=== PATIENT | female | born 1950 | race Caucasian/White ===

== ENCOUNTER 2018-03-05 09:00 | Outpatient (RCR) | payer MEDICARE, OTHER, SELFPAY ==
--- NOTE | 2017-11-18 13:14 | PT.OIE ---
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 Primary Care Provider Specialty: Family Practice Address: [address] [place] [address], [facility] Email: [email or web address] Physical Therapy Initial Evaluation PT-OP-A Visit Information Start: 11/13/17 09:44 Freq: Status: Active Protocol: Document 11/13/17 16:14 EA (Rec: 11/13/17 16:43 EA [id number]) Out-Patient Physical Therapy Visit Information Visit Information Visit Type Initial Evaluation Visit Start Time 09:00 Visit Stop Time 09:35 Total Visit Minutes 35 Visit Number 1 PT-OP-B Current Condition Start: 11/13/17 09:44 Freq: Status: Active Protocol: Document 11/13/17 16:14 EA (Rec: 11/13/17 16:43 EA [id number]) Current Condition History of Current Condition Onset Date 8 months ago Current Complaints Difficulty of shoulder elevation due to pain and LOM History of Current Condition Present condition started ~ 6- 8 months ago with no known injury or significant medical history; states it all started after moving from other [facility] to [place] and has to lift heavy boxes. Reports recent X-ray reveals shoulder OA. No formal PT in the past and shoulder pain has been lessening after taking pain medication, however LOM is limted. Prior Treatments and Tests OTC medication (Aleve) X-rays 4 months ago reveals OA of left shoulder Future Testing and Treatments Planned None Treatment Goals Patient/Caregiver Goals Patient wants to increase shoulder elevation with no pain and improve strength. Prior Functional Status Baseline Function- ADL's Independent Baseline Function- Mobility Independent Baseline Function- Work/School No shoulder limitation Current Functional Impairments (Reported) Functional Limitations- ADL's Limited with overhead movement and self care (reaching backward) Personal Factors Other Personal Factors That May Effect None Therapy/Recovery PT-OP-C Subjective Start: 11/13/17 09:44 Freq: Status: Active Protocol: Document 11/13/17 16:14 EA (Rec: 11/13/17 16:43 EA [id number]) OP-PT Subjective Patient Comments Patient Comments Patient c/o of diffikculty strapping the bra, reaching behind, and overhead movement using left shoulder. Patient Reported Progress Worse Patient Questionnaires Quick Dash- Upper Extremity Quick Dash UE Impairment 20 to 39% Impaired (Score 20- 39) PT-OP-E Functional Tests Start: 11/13/17 09:44 Freq: Status: Active Protocol: Document 11/13/17 16:14 EA (Rec: 11/13/17 16:43 EA [id number]) Functional Tests Apley's Scratch Test Action 1: The subject is instructed to touch the opposite shoulder with his/her hand. This motion checks Glenohumeral adduction, internal rotation , horizontal adduction and scapular protraction Action 2: The subject is instructed to place his/her arm overhead and reach behind the neck to touch his/her upper back. This motion checks Glenohumeral abduction, external rotation and scapular upward rotation and elevation. Action 3: The subject puts his/her hand on the lower back and reaches upward as far as possible. This motion checks glenohumeral adduction, internal rotation and scapular retraction with downward rotation Action 2- Left C7 Action 2- Right T4 Action 3- Left Upper gluteal Action 3- Right T6 PT-OP-F Manual Assessment Start: 11/13/17 09:44 Freq: Status: Active Protocol: Document 11/13/17 17:00 EA (Rec: 11/18/17 12:16 EA [id number]) Manual Assessments Soft Tissue Assessment Soft Tissue Mobility Assessment Tight shoulder ER, ABD, IR ( capsular pattern) Hypomobility Joint Mobility Assessment Joint Mobility Assessment Hypomobility of GH joint PT-OP-J Posture/Palpation/Skin Start: 11/13/17 09:44 Freq: Status: Active Protocol: Document 11/13/17 16:14 EA (Rec: 11/13/17 16:43 EA [id number]) Posture Evaluation Position Standing Evaluation View Posterior Head/C-Spine Posture Neutral Position T-Spine Posture Neutral Thorax Posture Neutral L-Spine Posture Neutral Shoulder Posture Neutral Scapula Posture (L) Protracted Palpation Assessment Location One Palpation Location Left shoulder Palpation Findings Soft Tissue Tightness Muscle Guarding Tenderness PT-OP-K Range of Motion Start: 11/13/17 09:44 Freq: Status: Active Protocol: Document 11/13/17 16:14 EA (Rec: 11/13/17 16:43 EA [id number]) Shoulder Goniometric Range of Motion Shoulder Measured in Degrees Left Active Testing Position Sitting Flexion 90 Extension 50 Abduction 75 Horizontal Abduction 20 External Rotation at 90 degrees 40 Abduction Internal Rotation 33 Shoulder ROM Limitations Shoulder ROM Limitations Soft Tissue Tightness Pain Comments Glenuhumeral capsular restriction ( ERot, ABD, IRot) PT-OP-L Special Tests Start: 11/13/17 09:44 Freq: Status: Active Protocol: Document 11/13/17 16:14 EA (Rec: 11/13/17 16:43 EA [id number]) Special Tests Shoulder Special Tests Posterior Impingement Test Results - Speed's Biceps Test Results - Empty Can Test Results - Beltrán Ramon Impingement Test Results - Elevation Impingement Test Results - Belly Press Test Results - PT-OP-M Strength Start: 11/13/17 09:44 Freq: Status: Active Protocol: Document 11/13/17 16:14 EA (Rec: 11/13/17 16:43 EA [id number]) Shoulder Strength Shoulder Manual Muscle Testing Left Flexion 4- Good- Extension 4- Good- Abduction (C5) 4- Good- Adduction 4+ Good+ External Rotation 4- Good- Internal Rotation 4- Good- Horizontal Abduction 4- Good- Horizontal Adduction 4 Good PT-OP-Q Treatments Start: 11/13/17 09:44 Freq: Status: Active Protocol: Document 11/13/17 16:14 EA (Rec: 11/13/17 16:43 EA [id number]) Self-Care/Home Management Treatment Education Patient Education Home Exercise Program Joint Protection Pain Management Safety PT-OP-T Assessment and Plan Start: 11/13/17 09:44 Freq: Status: Active Protocol: Document 11/13/17 16:14 EA (Rec: 11/13/17 16:43 EA [id number]) Physical Therapy Assessment Rehab Potential Rehabilitation Potential Good Evaluation Complexity Number of Personal Factors/Comorbidities 0 Number of Body Systems Impaired 1-2 Clinical Presentation at Evaluation Evolving Impairments Impairments Functional Activities Pain ROM Strength Other Concerns Barriers to Rehabilitation Chronicity of the condition. Goals Three Impairment QuickDash impairment scale of 20-30% impaired Chcf Goal (LTG) Patient will have QuickDash impairment scale of 0-10% impaired LTG Duration 4 wks Two Impairment Impaired left shoulder strength Chcf Goal (LTG) Patient will increase left shoulder strength by 1/2 grade to improve shoulder function or overhead and reaching behind movement LTG Duration 4 wks One Impairment Impaired L shoulder ROM Senior Business Analyst Goal (LTG) Patient will increase shoulder ROM to functional range (ER, ABD, IR) to improve shoulder functional mobility. LTG Duration 4 wks Assessment Summary Assessment Pleasant 67 y/o F patient presented with left shoulder LOM, minimal pain and weakness . Special tests reveals joint hypomobility in capsular pattern which probable for adhesive capsulitis, test to rotator cuff and long head of biceps reveals negative. Due to impaired shoulder function, patient demonstrates difficulty of shoulder overhead and reaching behind activities. In my professional opinion patient would benefit with skilled PT to address the aforementioned issue. Physical Therapy Plan Frequency and Duration Frequency of Treatment 2x/Week Duration of Treatment 8 wks Plan of Care Start Date 11/13/17 Plan of Care End Date 01/08/18 Therapeutic Interventions Therapeutic Interventions Home Exercise Program Joint Mobilizations Manual Therapy Patient/Caregiver Education Self-Care/Home Management Soft Tissue Mobilization Therapeutic Exercises Modalities Cold Pack/Ice Massage Electric Stimulation Hot Packs Ultrasound Next Visit Focus/Plan Next Note Type Treatment Note Next Visit Plan HEP, deep heating, mobilization, gentle PROM
--- NOTE | 2017-11-18 13:15 | PT.OPPOC ---
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 Primary Care Provider Specialty: Family Practice Address: [address] [place] [address], [id number] Email: [email or web address] Plan Of Care PT-OP-T Assessment and Plan Start: 11/13/17 09:44 Freq: Status: Active Protocol: Document 11/13/17 16:14 EA (Rec: 11/13/17 16:43 EA [id number]) Physical Therapy Assessment Rehab Potential Rehabilitation Potential Good Evaluation Complexity Number of Personal Factors/Comorbidities 0 Number of Body Systems Impaired 1-2 Clinical Presentation at Evaluation Evolving Impairments Impairments Functional Activities Pain ROM Strength Other Concerns Barriers to Rehabilitation Chronicity of the condition. Goals Three Impairment QuickDash impairment scale of 20-30% impaired Warehouse Consultant Goal (LTG) Patient will have QuickDash impairment scale of 0-10% impaired LTG Duration 4 wks Two Impairment Impaired left shoulder strength Warehouse Consultant Goal (LTG) Patient will increase left shoulder strength by 1/2 grade to improve shoulder function or overhead and reaching behind movement LTG Duration 4 wks One Impairment Impaired L shoulder ROM Halfway Goal (LTG) Patient will increase shoulder ROM to functional range (ER, ABD, IR) to improve shoulder functional mobility. LTG Duration 4 wks Assessment Summary Assessment Pleasant 67 y/o F patient presented with left shoulder LOM, minimal pain and weakness . Special tests reveals joint hypomobility in capsular pattern which probable for adhesive capsulitis, test to rotator cuff and long head of biceps reveals negative. Due to impaired shoulder function, patient demonstrates difficulty of shoulder overhead and reaching behind activities. In my professional opinion patient would benefit with skilled PT to address the aforementioned issues. Physical Therapy Plan Frequency and Duration Frequency of Treatment 2x/Week Duration of Treatment 8 wks Plan of Care Start Date 11/13/17 Plan of Care End Date 01/08/18 Therapeutic Interventions Therapeutic Interventions Home Exercise Program Joint Mobilizations Manual Therapy Patient/Caregiver Education Self-Care/Home Management Soft Tissue Mobilization Therapeutic Exercises Modalities Cold Pack/Ice Massage Electric Stimulation Hot Packs Ultrasound Next Visit Focus/Plan Next Note Type Treatment Note Next Visit Plan HEP, deep heating, mobilization, gentle PROM Plan of Care Dates Plan of Care Start Date 11/13/17 Plan of Care End Date 01/08/18 Please Sign and Return: I have reviewed this Plan of Care and certify that the skilled therapy services above are required to meet the patient?s needs. Physician Signature Date Printed Name and Credentials Clinical Instructor Signature Printed Name and Credentials
--- NOTE | 2017-11-18 17:07 | PT.OTN ---
Current Diagnoses Pain in left shoulder (11/18/17) Physical Therapy Treatment Note PT-OP-A Visit Information Start: 11/13/17 09:44 Freq: Status: Active Protocol: Document 11/18/17 16:47 EA (Rec: 11/18/17 16:51 EA [id number]) Out-Patient Physical Therapy Visit Information Visit Information Visit Type Treatment Note Visit Start Time 16:00 Visit Stop Time 16:50 Total Visit Minutes 50 Visit Number 2 PT-OP-B Current Condition Start: 11/13/17 09:44 Freq: Status: Active Protocol: Document 11/13/17 16:14 EA (Rec: 11/13/17 16:43 EA [id number]) Current Condition History of Current Condition Onset Date 8 months ago Current Complaints Diffikculty of shoulder elevation due to pain and LOM History of Current Condition Present condition strated ~ 6- 8 months ago with no known injury or significant medical history; states it all started [place] to [place] and has to lift heavy boxes. Reports recent X-ray reveals shoulder OA. No formal PT in the past and shoulder pain has been lessening after taking pain medication, however LOM is limted. Prior Treatments and Tests OTC medication (Aleeve) X-rays 4 months ago reveals OA of left shoulder Future Testing and Treatments Planned None Treatment Goals Patient/Caregiver Goals Patient wants to increase shoulder elevation with no pain and improve strength. Prior Functional Status Baseline Function- ADL's Independent Baseline Function- Mobility Independent Baseline Function- Work/School No shoulder limitation Current Functional Impairments (Reported) Functional Limitations- ADL's Limited with overhead movement and self care (reaching backward) Personal Factors Other Personal Factors That May Effect None Therapy/Recovery PT-OP-C Subjective Start: 11/13/17 09:44 Freq: Status: Active Protocol: Document 11/18/17 16:47 EA (Rec: 11/18/17 16:51 EA [id number]) OP-PT Subjective Patient Comments Patient Comments Pt reports compliant with HEP and range is improving. PT-OP-E Functional Tests Start: 11/13/17 09:44 Freq: Status: Active Protocol: Document 11/13/17 16:14 EA (Rec: 11/13/17 16:43 EA [id number]) Functional Tests Brandtey's Scratch Test Action 1: The subject is instructed to touch the opposite shoulder with his/her hand. This motion checks Glenohumeral adduction, internal rotation , horizontal adduction and scapular protraction Action 2: The subject is instructed to place his/her arm overhead and reach behind the neck to touch his/her upper back. This motion checks Glenohumeral abduction, external rotation and scapular upward rotation and elevation. Action 3: The subject puts his/her hand on the lower back and reaches upward as far as possible. This motion checks glenohumeral adduction, internal rotation and scapular retraction with downward rotation Action 2- Left C7 Action 2- Right T4 Action 3- Left Upper gluteal Action 3- Right T6 PT-OP-F Manual Assessment Start: 11/13/17 09:44 Freq: Status: Active Protocol: Document 11/13/17 17:00 EA (Rec: 11/18/17 12:16 EA [id number]) Manual Assessments Soft Tissue Assessment Soft Tissue Mobility Assessment Tight shoulder ER, ABD, IR ( capsular pattern) Hypomobility Joint Mobility Assessment Joint Mobility Assessment Hypomobility of GH joint PT-OP-J Posture/Palpation/Skin Start: 11/13/17 09:44 Freq: Status: Active Protocol: Document 11/13/17 16:14 EA (Rec: 11/13/17 16:43 EA [id number]) Posture Evaluation Position Standing Evaluation View Posterior Head/C-Spine Posture Neutral Position T-Spine Posture Neutral Thorax Posture Neutral L-Spine Posture Neutral Shoulder Posture Neutral Scapula Posture (L) Protracted Palpation Assessment Location One Palpation Location Left shoulder Palpation Findings Soft Tissue Tightness Muscle Guarding Tenderness PT-OP-K Range of Motion Start: 11/13/17 09:44 Freq: Status: Active Protocol: Document 11/13/17 16:14 EA (Rec: 11/13/17 16:43 EA [id number]) Shoulder Goniometric Range of Motion Shoulder Measured in Degrees Left Active Testing Position Sitting Flexion 90 Extension 50 Abduction 75 Horizontal Abduction 20 External Rotation at 90 degrees 40 Abduction Internal Rotation 33 Shoulder ROM Limitations Shoulder ROM Limitations Soft Tissue Tightness Pain Comments Glenuhumeral capsular restriction ( ERot, ABD, IRot) PT-OP-L Special Tests Start: 11/13/17 09:44 Freq: Status: Active Protocol: Document 11/13/17 16:14 EA (Rec: 11/13/17 16:43 EA [id number]) Special Tests Shoulder Special Tests Posterior Impingement Test Results - Speed's Biceps Test Results - Empty Can Test Results - Beltrán Ramon Impingement Test Results - Elevation Impingement Test Results - Belly Press Test Results - PT-OP-M Strength Start: 11/13/17 09:44 Freq: Status: Active Protocol: Document 11/13/17 16:14 EA (Rec: 11/13/17 16:43 EA [id number]) Shoulder Strength Shoulder Manual Muscle Testing Left Flexion 4- Good- Extension 4- Good- Abduction (C5) 4- Good- Adduction 4+ Good+ External Rotation 4- Good- Internal Rotation 4- Good- Horizontal Abduction 4- Good- Horizontal Adduction 4 Good PT-OP-Q Treatments Start: 11/13/17 09:44 Freq: Status: Active Protocol: Document 11/18/17 16:47 EA (Rec: 11/18/17 16:51 EA [id number]) Cardio Equipment Upper Body Ergometer (UBE) Duration (Minutes) 6 Height 3.5 Therapeutic Exercises Sitting Exercises 1 Sitting Exercise Name Sebastián: flexion/ABD Reps/Minutes x 10 reps x 2 sets Manual Therapy Treatment Soft Tissue Mobilization 1 Body Location left shoulder Mobilization Type Sustained Pressure Joint Mobilizations 1 Joint GH Direction Post/INF Grade III Body Position Supine PT-OP-R Modalities Start: 11/18/17 16:51 Freq: Status: Active Protocol: Document 11/18/17 16:51 EA (Rec: 11/18/17 16:52 EA [id number]) Electric Stimulation Electric Stimulation Interferential Current (IFC) Body Location SS,Deltoid, IS Duration (Minutes) 15 Combined With Heat/Cold Hot Pack Ultrasound Therapy Treatment Left Shoulder Treatment Duration (minutes) 5 Patient Position Supine Coupling Medium Ultrasound Gel Mode Setting Continuous Intensity Setting (w/cm2) 1.0 PT-OP-T Assessment and Plan Start: 11/13/17 09:44 Freq: Status: Active Protocol: Document 11/18/17 16:47 EA (Rec: 11/18/17 16:51 EA [id number]) Physical Therapy Assessment Assessment Summary Assessment Tolerated treatment well. Physical Therapy Plan Next Visit Focus/Plan Next Note Type Treatment Note Next Visit Plan Cont with current program. Provide HEP
--- NOTE | 2017-11-20 16:35 | PT.OTN ---
Current Diagnoses Pain in left shoulder (11/20/17) Physical Therapy Treatment Note PT-OP-A Visit Information Start: 11/13/17 09:44 Freq: Status: Active Protocol: Document 11/20/17 14:26 EA (Rec: 11/20/17 15:18 EA [id number]) Out-Patient Physical Therapy Visit Information Visit Information Visit Type Treatment Note Visit Start Time 14:30 Visit Stop Time 15:30 Total Visit Minutes 50 Visit Number 3 PT-OP-B Current Condition Start: 11/13/17 09:44 Freq: Status: Active Protocol: Document 11/13/17 16:14 EA (Rec: 11/13/17 16:43 EA [id number]) Current Condition History of Current Condition Onset Date 8 months ago Current Complaints Diffikculty of shoulder elevation due to pain and LOM History of Current Condition Present condition strated ~ 6- 8 months ago with no known injury or significant medical history; states it all started after moving from other States to [place] and has to lift heavy boxes. Reports recent X-ray reveals shoulder OA. No formal PT in the past and shoulder pain has been lessening after taking pain medication, however LOM is limted. Prior Treatments and Tests OTC medication (Aleeve) X-rays 4 months ago reveals OA of left shoulder Future Testing and Treatments Planned None Treatment Goals Patient/Caregiver Goals Patient wants to increase shoulder elevation with no pain and improve strength. Prior Functional Status Baseline Function- ADL's Independent Baseline Function- Mobility Independent Baseline Function- Work/School No shoulder limitation Current Functional Impairments (Reported) Functional Limitations- ADL's Limited with overhead movement and self care (reaching backward) Personal Factors Other Personal Factors That May Effect None Therapy/Recovery PT-OP-C Subjective Start: 11/13/17 09:44 Freq: Status: Active Protocol: Document 11/20/17 14:26 EA (Rec: 11/20/17 15:18 EA [id number]) OP-PT Subjective Patient Comments Patient Comments Loren reports no incrased in pain after last session and noted improved shoulder ROM after doing wall ROM. Patient also reports that she will be gone for three weeks and wants to know more home exercises. PT-OP-E Functional Tests Start: 11/13/17 09:44 Freq: Status: Active Protocol: Document 11/13/17 16:14 EA (Rec: 11/13/17 16:43 EA [id number]) Functional Tests Apley's Scratch Test Action 1: The subject is instructed to touch the opposite shoulder with his/her hand. This motion checks Glenohumeral adduction, internal rotation , horizontal adduction and scapular protraction Action 2: The subject is instructed to place his/her arm overhead and reach behind the neck to touch his/her upper back. This motion checks Glenohumeral abduction, external rotation and scapular upward rotation and elevation. Action 3: The subject puts his/her hand on the lower back and reaches upward as far as possible. This motion checks glenohumeral adduction, internal rotation and scapular retraction with downward rotation Action 2- Left C7 Action 2- Right T4 Action 3- Left Upper gluteal Action 3- Right T6 PT-OP-F Manual Assessment Start: 11/13/17 09:44 Freq: Status: Active Protocol: Document 11/13/17 17:00 EA (Rec: 11/18/17 12:16 EA [id number]) Manual Assessments Soft Tissue Assessment Soft Tissue Mobility Assessment Tight shoulder ER, ABD, IR ( capsular pattern) Hypomobility Joint Mobility Assessment Joint Mobility Assessment Hypomobility of GH joint PT-OP-J Posture/Palpation/Skin Start: 11/13/17 09:44 Freq: Status: Active Protocol: Document 11/13/17 16:14 EA (Rec: 11/13/17 16:43 EA [id number]) Posture Evaluation Position Standing Evaluation View Posterior Head/C-Spine Posture Neutral Position T-Spine Posture Neutral Thorax Posture Neutral L-Spine Posture Neutral Shoulder Posture Neutral Scapula Posture (L) Protracted Palpation Assessment Location One Palpation Location Left shoulder Palpation Findings Soft Tissue Tightness Muscle Guarding Tenderness PT-OP-K Range of Motion Start: 11/13/17 09:44 Freq: Status: Active Protocol: Document 11/13/17 16:14 EA (Rec: 11/13/17 16:43 EA [id number]) Shoulder Goniometric Range of Motion Shoulder Measured in Degrees Left Active Testing Position Sitting Flexion 90 Extension 50 Abduction 75 Horizontal Abduction 20 External Rotation at 90 degrees 40 Abduction Internal Rotation 33 Shoulder ROM Limitations Shoulder ROM Limitations Soft Tissue Tightness Pain Comments Glenuhumeral capsular restriction ( ERot, ABD, IRot) PT-OP-L Special Tests Start: 11/13/17 09:44 Freq: Status: Active Protocol: Document 11/13/17 16:14 EA (Rec: 11/13/17 16:43 EA [id number]) Special Tests Shoulder Special Tests Posterior Impingement Test Results - Speed's Biceps Test Results - Empty Can Test Results - Beltrán Ramon Impingement Test Results - Elevation Impingement Test Results - Belly Press Test Results - PT-OP-M Strength Start: 11/13/17 09:44 Freq: Status: Active Protocol: Document 11/13/17 16:14 EA (Rec: 11/13/17 16:43 EA [id number]) Shoulder Strength Shoulder Manual Muscle Testing Left Flexion 4- Good- Extension 4- Good- Abduction (C5) 4- Good- Adduction 4+ Good+ External Rotation 4- Good- Internal Rotation 4- Good- Horizontal Abduction 4- Good- Horizontal Adduction 4 Good PT-OP-Q Treatments Start: 11/13/17 09:44 Freq: Status: Active Protocol: Document 11/20/17 14:26 EA (Rec: 11/20/17 15:18 EA [id number]) Cardio Equipment Upper Body Ergometer (UBE) Duration (Minutes) 6 Height 3.5 Therapeutic Exercises Sitting Exercises 1 Sitting Exercise Name Sebastián: flexion/ABD Reps/Minutes x 10 reps x 2 sets Manual Therapy Treatment Soft Tissue Mobilization 1 Body Location left shoulder Mobilization Type Sustained Pressure Joint Mobilizations 1 Joint GH Direction Post/INF Grade III Body Position Supine Self-Care/Home Management Treatment Education Patient Education Home Exercise Program Joint Protection Pain Management PT-OP-R Modalities Start: 11/18/17 16:51 Freq: Status: Active Protocol: Document 11/20/17 14:26 EA (Rec: 11/20/17 15:18 EA [id number]) Electric Stimulation Electric Stimulation Interferential Current (IFC) Body Location SS,Deltoid, IS Duration (Minutes) 15 Combined With Heat/Cold Hot Pack Ultrasound Therapy Treatment Left Shoulder Treatment Duration (minutes) 5 Patient Position Supine Coupling Medium Ultrasound Gel Mode Setting Continuous Intensity Setting (w/cm2) 1.0 PT-OP-T Assessment and Plan Start: 11/13/17 09:44 Freq: Status: Active Protocol: Document 11/20/17 14:26 EA (Rec: 11/20/17 15:18 EA [id number]) Physical Therapy Assessment Assessment Summary Assessment Patient had significant improvement to right shoulder ROM and symptoms. Patient to see after three weeks and HEP was given and educated. Physical Therapy Plan Next Visit Focus/Plan Next Visit Plan Progress as tolerated upon return
--- NOTE | 2017-12-16 10:45 | PT.OTN ---
Current Diagnoses Pain in left shoulder (12/16/17) Physical Therapy Treatment Note PT-OP-A Visit Information Start: 11/13/17 09:44 Freq: Status: Active Protocol: Document 12/16/17 10:34 EA (Rec: 12/16/17 10:43 EA [id number]) Out-Patient Physical Therapy Visit Information Visit Information Visit Type Treatment Note Visit Start Time 14:30 Visit Stop Time 15:30 Total Visit Minutes 50 Visit Number 4 PT-OP-B Current Condition Start: 11/13/17 09:44 Freq: Status: Active Protocol: Document 11/13/17 16:14 EA (Rec: 11/13/17 16:43 EA [id number]) Current Condition History of Current Condition Onset Date 8 months ago Current Complaints Diffikculty of shoulder elevation due to pain and LOM History of Current Condition Present condition strated ~ 6- 8 months ago with no known injury or significant medical history; states it all started after moving from other States to [place] and has to lift heavy boxes. Reports recent X-ray reveals shoulder OA. No formal PT in the past and shoulder pain has been lessening after taking pain medication, however LOM is limted. Prior Treatments and Tests OTC medication (Aleeve) X-rays 4 months ago reveals OA of left shoulder Future Testing and Treatments Planned None Treatment Goals Patient/Caregiver Goals Patient wants to increase shoulder elevation with no pain and improve strength. Prior Functional Status Baseline Function- ADL's Independent Baseline Function- Mobility Independent Baseline Function- Work/School No shoulder limitation Current Functional Impairments (Reported) Functional Limitations- ADL's Limited with overhead movement and self care (reaching backward) Personal Factors Other Personal Factors That May Effect None Therapy/Recovery PT-OP-C Subjective Start: 11/13/17 09:44 Freq: Status: Active Protocol: Document 12/16/17 10:34 EA (Rec: 12/16/17 10:43 EA [id number]) OP-PT Subjective Patient Comments Patient Comments Patient reports unable to perform HEP on recommended schedule time. patient states pain is much less but still limited with range. Patient also reports right thumb is painful in the past few weeks and is planning to see her doctor for assessment. Patient Reported Progress Improving PT-OP-E Functional Tests Start: 11/13/17 09:44 Freq: Status: Active Protocol: Document 11/13/17 16:14 EA (Rec: 11/13/17 16:43 EA [id number]) Functional Tests Apley's Scratch Test Action 1: The subject is instructed to touch the opposite shoulder with his/her hand. This motion checks Glenohumeral adduction, internal rotation , horizontal adduction and scapular protraction Action 2: The subject is instructed to place his/her arm overhead and reach behind the neck to touch his/her upper back. This motion checks Glenohumeral abduction, external rotation and scapular upward rotation and elevation. Action 3: The subject puts his/her hand on the lower back and reaches upward as far as possible. This motion checks glenohumeral adduction, internal rotation and scapular retraction with downward rotation Action 2- Left C7 Action 2- Right T4 Action 3- Left Upper gluteal Action 3- Right T6 PT-OP-F Manual Assessment Start: 11/13/17 09:44 Freq: Status: Active Protocol: Document 11/13/17 17:00 EA (Rec: 11/18/17 12:16 EA [id number]) Manual Assessments Soft Tissue Assessment Soft Tissue Mobility Assessment Tight shoulder ER, ABD, IR ( capsular pattern) Hypomobility Joint Mobility Assessment Joint Mobility Assessment Hypomobility of GH joint PT-OP-J Posture/Palpation/Skin Start: 11/13/17 09:44 Freq: Status: Active Protocol: Document 11/13/17 16:14 EA (Rec: 11/13/17 16:43 EA [id number]) Posture Evaluation Position Standing Evaluation View Posterior Head/C-Spine Posture Neutral Position T-Spine Posture Neutral Thorax Posture Neutral L-Spine Posture Neutral Shoulder Posture Neutral Scapula Posture (L) Protracted Palpation Assessment Location One Palpation Location Left shoulder Palpation Findings Soft Tissue Tightness Muscle Guarding Tenderness PT-OP-K Range of Motion Start: 11/13/17 09:44 Freq: Status: Active Protocol: Document 11/13/17 16:14 EA (Rec: 11/13/17 16:43 EA [id number]) Shoulder Goniometric Range of Motion Shoulder Measured in Degrees Left Active Testing Position Sitting Flexion 90 Extension 50 Abduction 75 Horizontal Abduction 20 External Rotation at 90 degrees 40 Abduction Internal Rotation 33 Shoulder ROM Limitations Shoulder ROM Limitations Soft Tissue Tightness Pain Comments Glenuhumeral capsular restriction ( ERot, ABD, IRot) PT-OP-L Special Tests Start: 11/13/17 09:44 Freq: Status: Active Protocol: Document 11/13/17 16:14 EA (Rec: 11/13/17 16:43 EA [id number]) Special Tests Shoulder Special Tests Posterior Impingement Test Results - Speed's Biceps Test Results - Empty Can Test Results - Beltrán Ramon Impingement Test Results - Elevation Impingement Test Results - Belly Press Test Results - PT-OP-M Strength Start: 11/13/17 09:44 Freq: Status: Active Protocol: Document 11/13/17 16:14 EA (Rec: 11/13/17 16:43 EA [id number]) Shoulder Strength Shoulder Manual Muscle Testing Left Flexion 4- Good- Extension 4- Good- Abduction (C5) 4- Good- Adduction 4+ Good+ External Rotation 4- Good- Internal Rotation 4- Good- Horizontal Abduction 4- Good- Horizontal Adduction 4 Good PT-OP-Q Treatments Start: 11/13/17 09:44 Freq: Status: Active Protocol: Document 12/16/17 10:34 EA (Rec: 12/16/17 10:43 EA [id number]) Cardio Equipment Upper Body Ergometer (UBE) Duration (Minutes) 6 Height 4 Therapeutic Exercises Sitting Exercises 1 Sitting Exercise Name Sebastián: flexion/ABD Reps/Minutes x 10 reps x 2 sets Standing Exercises 2 Standing Exercise Name wall slides: Flexion/ V form Equipment Used wall slider Reps/Minutes x 15 reps x 2 sets each 1 Standing Exercise Name T-Bar: Flexion, extnsion-IR Side bilateral Reps/Minutes x 15 reps x 2 sets Manual Therapy Treatment Soft Tissue Mobilization 1 Body Location left shoulder Mobilization Type Sustained Pressure Joint Mobilizations 1 Joint GH Direction Post/INF Grade III Body Position Supine Manual Techniques 1 Type Gentle PROM/Stretch Comments Perform contact-relax PNF PT-OP-R Modalities Start: 11/18/17 16:51 Freq: Status: Active Protocol: Document 12/16/17 10:34 EA (Rec: 12/16/17 10:43 EA [id number]) Hot Pack/Cold Pack Treatment Hot Pack Location L shoulder Patient Position Supine Patient Tolerance Good PT-OP-T Assessment and Plan Start: 11/13/17 09:44 Freq: Status: Active Protocol: Document 12/16/17 10:34 EA (Rec: 12/16/17 10:43 EA [id number]) Physical Therapy Assessment Progress Towards Goals Progress Comments AROM supine: Flexion: 0-140 ABD: 130 Assessment Summary Assessment Patient had improved ROM after manual PT. Advised patient to continue HEP. Physical Therapy Plan Next Visit Focus/Plan Next Note Type Treatment Note Next Visit Plan Progress as tolerated
--- NOTE | 2017-12-18 15:07 | PT.OTN ---
Current Diagnoses Pain in left shoulder (12/18/17) Physical Therapy Treatment Note PT-OP-A Visit Information Start: 11/13/17 09:44 Freq: Status: Active Protocol: Document 12/18/17 13:05 EA (Rec: 12/18/17 13:50 EA [id number]) Out-Patient Physical Therapy Visit Information Visit Information Visit Type Treatment Note Visit Start Time 13:00 Visit Stop Time 13:50 Visit Number 5 PT-OP-B Current Condition Start: 11/13/17 09:44 Freq: Status: Active Protocol: Document 11/13/17 16:14 EA (Rec: 11/13/17 16:43 EA [id number]) Current Condition History of Current Condition Onset Date 8 months ago Current Complaints Diffikculty of shoulder elevation due to pain and LOM History of Current Condition Present condition strated ~ 6- 8 months ago with no known injury or significant medical history; states it all started after moving from other States to [place] and has to lift heavy boxes. Reports recent X-ray reveals shoulder OA. No formal PT in the past and shoulder pain has been lessening after taking pain medication, however LOM is limted. Prior Treatments and Tests OTC medication (Aleeve) X-rays 4 months ago reveals OA of left shoulder Future Testing and Treatments Planned None Treatment Goals Patient/Caregiver Goals Patient wants to increase shoulder elevation with no pain and improve strength. Prior Functional Status Baseline Function- ADL's Independent Baseline Function- Mobility Independent Baseline Function- Work/School No shoulder limitation Current Functional Impairments (Reported) Functional Limitations- ADL's Limited with overhead movement and self care (reaching backward) Personal Factors Other Personal Factors That May Effect None Therapy/Recovery PT-OP-C Subjective Start: 11/13/17 09:44 Freq: Status: Active Protocol: Document 12/18/17 13:05 EA (Rec: 12/18/17 13:50 EA [id number]) OP-PT Subjective Patient Comments Patient Comments Patient reports left shoulder feels losen after last session ; states pain increased after more than 140 deg ABD/Flexion. Reports compliant with HEP Patient Reported Progress Improving PT-OP-E Functional Tests Start: 11/13/17 09:44 Freq: Status: Active Protocol: Document 11/13/17 16:14 EA (Rec: 11/13/17 16:43 EA [id number]) Functional Tests Apley's Scratch Test Action 1: The subject is instructed to touch the opposite shoulder with his/her hand. This motion checks Glenohumeral adduction, internal rotation , horizontal adduction and scapular protraction Action 2: The subject is instructed to place his/her arm overhead and reach behind the neck to touch his/her upper back. This motion checks Glenohumeral abduction, external rotation and scapular upward rotation and elevation. Action 3: The subject puts his/her hand on the lower back and reaches upward as far as possible. This motion checks glenohumeral adduction, internal rotation and scapular retraction with downward rotation Action 2- Left C7 Action 2- Right T4 Action 3- Left Upper gluteal Action 3- Right T6 PT-OP-F Manual Assessment Start: 11/13/17 09:44 Freq: Status: Active Protocol: Document 11/13/17 17:00 EA (Rec: 11/18/17 12:16 EA [id number]) Manual Assessments Soft Tissue Assessment Soft Tissue Mobility Assessment Tight shoulder ER, ABD, IR ( capsular pattern) Hypomobility Joint Mobility Assessment Joint Mobility Assessment Hypomobility of GH joint PT-OP-J Posture/Palpation/Skin Start: 11/13/17 09:44 Freq: Status: Active Protocol: Document 11/13/17 16:14 EA (Rec: 11/13/17 16:43 EA [id number]) Posture Evaluation Position Standing Evaluation View Posterior Head/C-Spine Posture Neutral Position T-Spine Posture Neutral Thorax Posture Neutral L-Spine Posture Neutral Shoulder Posture Neutral Scapula Posture (L) Protracted Palpation Assessment Location One Palpation Location Left shoulder Palpation Findings Soft Tissue Tightness Muscle Guarding Tenderness PT-OP-K Range of Motion Start: 11/13/17 09:44 Freq: Status: Active Protocol: Document 11/13/17 16:14 EA (Rec: 11/13/17 16:43 EA [id number]) Shoulder Goniometric Range of Motion Shoulder Measured in Degrees Left Active Testing Position Sitting Flexion 90 Extension 50 Abduction 75 Horizontal Abduction 20 External Rotation at 90 degrees 40 Abduction Internal Rotation 33 Shoulder ROM Limitations Shoulder ROM Limitations Soft Tissue Tightness Pain Comments Glenuhumeral capsular restriction ( ERot, ABD, IRot) PT-OP-L Special Tests Start: 08/30/18 09:44 Freq: Status: Active Protocol: Document 11/13/17 16:14 EA (Rec: 11/13/17 16:43 EA [id number]) Special Tests Shoulder Special Tests Posterior Impingement Test Results - Speed's Biceps Test Results - Empty Can Test Results - Beltrán Ramon Impingement Test Results - Elevation Impingement Test Results - Belly Press Test Results - PT-OP-M Strength Start: 11/13/17 09:44 Freq: Status: Active Protocol: Document 11/13/17 16:14 EA (Rec: 11/13/17 16:43 EA [id number]) Shoulder Strength Shoulder Manual Muscle Testing Left Flexion 4- Good- Extension 4- Good- Abduction (C5) 4- Good- Adduction 4+ Good+ External Rotation 4- Good- Internal Rotation 4- Good- Horizontal Abduction 4- Good- Horizontal Adduction 4 Good PT-OP-Q Treatments Start: 11/13/17 09:44 Freq: Status: Active Protocol: Document 12/18/17 13:05 EA (Rec: 12/18/17 13:50 EA [id number]) Cardio Equipment Upper Body Ergometer (UBE) Duration (Minutes) 6 Height 5.5 Therapeutic Exercises Sitting Exercises 1 Sitting Exercise Name Sebastián: flexion/ABD Reps/Minutes x 10 reps x 2 sets Standing Exercises 2 Standing Exercise Name wall slides: Flexion/ V form Equipment Used wall slider Reps/Minutes x 15 reps x 2 sets each 1 Standing Exercise Name T-Bar: Flexion, extnsion-IR Side bilateral Reps/Minutes x 15 reps x 2 sets Manual Therapy Treatment Soft Tissue Mobilization 1 Body Location left shoulder Mobilization Type Sustained Pressure Joint Mobilizations 1 Joint GH Direction Post/INF Grade III Body Position Supine Manual Techniques 1 Type Gentle PROM/Stretch Comments Perform contact-relax PNF PT-OP-R Modalities Start: 11/18/17 16:51 Freq: Status: Active Protocol: Document 12/18/17 13:05 EA (Rec: 12/18/17 13:50 EA [id number]) Electric Stimulation Electric Stimulation Interferential Current (IFC) Combined With Heat/Cold Cold Pack Hot Pack/Cold Pack Treatment Hot Pack Location L shoulder Patient Position Supine Patient Tolerance Good Comments cold pack PT-OP-T Assessment and Plan Start: 11/13/17 09:44 Freq: Status: Active Protocol: Document 12/18/17 13:05 [id number] (Rec: 12/18/17 13:50 EA [id number]) Physical Therapy Assessment Assessment Summary Assessment Tolerated treatment with minor discomfort toward IR. ROM cont to improve toward flexion /ABD Physical Therapy Plan Next Visit Focus/Plan Next Note Type Treatment Note Next Visit Plan Progress as tolerated
--- NOTE | 2017-12-22 12:15 | PT.OTN ---
Current Diagnoses Pain in left shoulder (12/22/17) Physical Therapy Treatment Note PT-OP-A Visit Information Start: 11/13/17 09:44 Freq: Status: Active Protocol: Document 12/22/17 09:49 EA (Rec: 12/22/17 10:31 EA [id number]) Out-Patient Physical Therapy Visit Information Visit Information Visit Type Treatment Note Visit Start Time 09:45 Visit Stop Time 10:35 Visit Number 6 PT-OP-B Current Condition Start: 11/13/17 09:44 Freq: Status: Active Protocol: Document 11/13/17 16:14 EA (Rec: 11/13/17 16:43 EA [id number]) Current Condition History of Current Condition Onset Date 8 months ago Current Complaints Diffikculty of shoulder elevation due to pain and LOM History of Current Condition Present condition strated ~ 6- 8 months ago with no known injury or significant medical history; states it all started after moving from other States to [place] and has to lift heavy boxes. Reports recent X-ray reveals shoulder OA. No formal PT in the past and shoulder pain has been lessening after taking pain medication, however LOM is limted. Prior Treatments and Tests OTC medication (Aleeve) X-rays 4 months ago reveals OA of left shoulder Future Testing and Treatments Planned None Treatment Goals Patient/Caregiver Goals Patient wants to increase shoulder elevation with no pain and improve strength. Prior Functional Status Baseline Function- ADL's Independent Baseline Function- Mobility Independent Baseline Function- Work/School No shoulder limitation Current Functional Impairments (Reported) Functional Limitations- ADL's Limited with overhead movement and self care (reaching backward) Personal Factors Other Personal Factors That May Effect None Therapy/Recovery PT-OP-C Subjective Start: 11/13/17 09:44 Freq: Status: Active Protocol: Document 12/22/17 09:49 EA (Rec: 12/22/17 10:31 EA [id number]) OP-PT Subjective Patient Comments Patient Comments Pt reports compliants with HEP ; states sore after every exercises. PT-OP-E Functional Tests Start: 11/13/17 09:44 Freq: Status: Active Protocol: Document 11/13/17 16:14 EA (Rec: 11/13/17 16:43 EA [id number]) Functional Tests Brandtey's Scratch Test Action 1: The subject is instructed to touch the opposite shoulder with his/her hand. This motion checks Glenohumeral adduction, internal rotation , horizontal adduction and scapular protraction Action 2: The subject is instructed to place his/her arm overhead and reach behind the neck to touch his/her upper back. This motion checks Glenohumeral abduction, external rotation and scapular upward rotation and elevation. Action 3: The subject puts his/her hand on the lower back and reaches upward as far as possible. This motion checks glenohumeral adduction, internal rotation and scapular retraction with downward rotation Action 2- Left C7 Action 2- Right T4 Action 3- Left Upper gluteal Action 3- Right T6 PT-OP-F Manual Assessment Start: 11/13/17 09:44 Freq: Status: Active Protocol: Document 11/13/17 17:00 EA (Rec: 11/18/17 12:16 EA [id number]) Manual Assessments Soft Tissue Assessment Soft Tissue Mobility Assessment Tight shoulder ER, ABD, IR ( capsular pattern) Hypomobility Joint Mobility Assessment Joint Mobility Assessment Hypomobility of GH joint PT-OP-J Posture/Palpation/Skin Start: 11/13/17 09:44 Freq: Status: Active Protocol: Document 11/13/17 16:14 EA (Rec: 11/13/17 16:43 EA [id number]) Posture Evaluation Position Standing Evaluation View Posterior Head/C-Spine Posture Neutral Position T-Spine Posture Neutral Thorax Posture Neutral L-Spine Posture Neutral Shoulder Posture Neutral Scapula Posture (L) Protracted Palpation Assessment Location One Palpation Location Left shoulder Palpation Findings Soft Tissue Tightness Muscle Guarding Tenderness PT-OP-K Range of Motion Start: 11/13/17 09:44 Freq: Status: Active Protocol: Document 11/13/17 16:14 EA (Rec: 11/13/17 16:43 EA [id number]) Shoulder Goniometric Range of Motion Shoulder Measured in Degrees Left Active Testing Position Sitting Flexion 90 Extension 50 Abduction 75 Horizontal Abduction 20 External Rotation at 90 degrees 40 Abduction Internal Rotation 33 Shoulder ROM Limitations Shoulder ROM Limitations Soft Tissue Tightness Pain Comments Glenuhumeral capsular restriction ( ERot, ABD, IRot) PT-OP-L Special Tests Start: 11/13/17 09:44 Freq: Status: Active Protocol: Document 11/13/17 16:14 EA (Rec: 11/13/17 16:43 EA [id number]) Special Tests Shoulder Special Tests Posterior Impingement Test Results - Speed's Biceps Test Results - Empty Can Test Results - Beltrán Ramon Impingement Test Results - Elevation Impingement Test Results - Belly Press Test Results - PT-OP-M Strength Start: 11/13/17 09:44 Freq: Status: Active Protocol: Document 11/13/17 16:14 EA (Rec: 11/13/17 16:43 EA [id number]) Shoulder Strength Shoulder Manual Muscle Testing Left Flexion 4- Good- Extension 4- Good- Abduction (C5) 4- Good- Adduction 4+ Good+ External Rotation 4- Good- Internal Rotation 4- Good- Horizontal Abduction 4- Good- Horizontal Adduction 4 Good PT-OP-Q Treatments Start: 11/13/17 09:44 Freq: Status: Active Protocol: Document 12/22/17 09:49 EA (Rec: 12/22/17 10:31 EA [id number]) Cardio Equipment Upper Body Ergometer (UBE) Duration (Minutes) 6 Height 4-6.5 Therapeutic Exercises Sitting Exercises 1 Sitting Exercise Name Sebastián: flexion/ABD Reps/Minutes x 10 reps x 2 sets Standing Exercises 2 Standing Exercise Name wall slides: Flexion/ V form Equipment Used wall slider Reps/Minutes x 15 reps x 2 sets each 1 Standing Exercise Name T-Bar: Flexion, extnsion-IR Side bilateral Reps/Minutes x 15 reps x 2 sets Manual Therapy Treatment Soft Tissue Mobilization 1 Body Location left shoulder Mobilization Type Sustained Pressure Joint Mobilizations 1 Joint GH Direction Post/INF Grade III Body Position Supine Manual Techniques 1 Type Gentle PROM/Stretch Comments Perform contact-relax PNF PT-OP-R Modalities Start: 11/18/17 16:51 Freq: Status: Active Protocol: Document 12/22/17 09:49 EA (Rec: 12/22/17 10:31 EA [id number]) Electric Stimulation Electric Stimulation Interferential Current (IFC) Body Location SS,Deltoid, IS Duration (Minutes) 15 Combined With Heat/Cold Hot Pack PT-OP-T Assessment and Plan Start: 11/13/17 09:44 Freq: Status: Active Protocol: Document 12/22/17 09:49 EA (Rec: 12/22/17 10:31 EA [id number]) Physical Therapy Assessment Assessment Summary Assessment Full F/ABD PROM performed today with min discomfort., Patient is progressing well. Physical Therapy Plan Next Visit Focus/Plan Next Note Type Treatment Note Next Visit Plan Progress as tolerated
--- NOTE | 2017-12-24 12:07 | PT.OTN ---
Current Diagnoses Pain in left shoulder (12/24/17) Physical Therapy Treatment Note PT-OP-A Visit Information Start: 11/13/17 09:44 Freq: Status: Active Protocol: Document 12/24/17 10:28 EA (Rec: 12/24/17 11:16 EA [id number]) Out-Patient Physical Therapy Visit Information Visit Information Visit Type Treatment Note Visit Start Time 10:30 Visit Stop Time 11:15 Visit Number 7 PT-OP-B Current Condition Start: 11/13/17 09:44 Freq: Status: Active Protocol: Document 11/13/17 16:14 EA (Rec: 11/13/17 16:43 EA [id number]) Current Condition History of Current Condition Onset Date 8 months ago Current Complaints Diffikculty of shoulder elevation due to pain and LOM History of Current Condition Present condition strated ~ 6- 8 months ago with no known injury or significant medical history; states it all started after moving from other States to [place] and has to lift heavy boxes. Reports recent X-ray reveals shoulder OA. No formal PT in the past and shoulder pain has been lessening after taking pain medication, however LOM is limted. Prior Treatments and Tests OTC medication (Aleeve) X-rays 4 months ago reveals OA of left shoulder Future Testing and Treatments Planned None Treatment Goals Patient/Caregiver Goals Patient wants to increase shoulder elevation with no pain and improve strength. Prior Functional Status Baseline Function- ADL's Independent Baseline Function- Mobility Independent Baseline Function- Work/School No shoulder limitation Current Functional Impairments (Reported) Functional Limitations- ADL's Limited with overhead movement and self care (reaching backward) Personal Factors Other Personal Factors That May Effect None Therapy/Recovery PT-OP-C Subjective Start: 11/13/17 09:44 Freq: Status: Active Protocol: Document 12/24/17 10:28 EA (Rec: 12/24/17 11:16 EA [id number]) OP-PT Subjective Patient Comments Patient Comments Pt reports shoulder is improving well; states sore after HEP but tolerated. Patient Reported Progress Improving PT-OP-E Functional Tests Start: 11/13/17 09:44 Freq: Status: Active Protocol: Document 11/13/17 16:14 EA (Rec: 11/13/17 16:43 EA [id number]) Functional Tests Brandtey's Scratch Test Action 1: The subject is instructed to touch the opposite shoulder with his/her hand. This motion checks Glenohumeral adduction, internal rotation , horizontal adduction and scapular protraction Action 2: The subject is instructed to place his/her arm overhead and reach behind the neck to touch his/her upper back. This motion checks Glenohumeral abduction, external rotation and scapular upward rotation and elevation. Action 3: The subject puts his/her hand on the lower back and reaches upward as far as possible. This motion checks glenohumeral adduction, internal rotation and scapular retraction with downward rotation Action 2- Left C7 Action 2- Right T4 Action 3- Left Upper gluteal Action 3- Right T6 PT-OP-F Manual Assessment Start: 11/13/17 09:44 Freq: Status: Active Protocol: Document 11/13/17 17:00 EA (Rec: 11/18/17 12:16 EA [id number]) Manual Assessments Soft Tissue Assessment Soft Tissue Mobility Assessment Tight shoulder ER, ABD, IR ( capsular pattern) Hypomobility Joint Mobility Assessment Joint Mobility Assessment Hypomobility of GH joint PT-OP-J Posture/Palpation/Skin Start: 11/13/17 09:44 Freq: Status: Active Protocol: Document 11/13/17 16:14 EA (Rec: 11/13/17 16:43 EA [id number]) Posture Evaluation Position Standing Evaluation View Posterior Head/C-Spine Posture Neutral Position T-Spine Posture Neutral Thorax Posture Neutral L-Spine Posture Neutral Shoulder Posture Neutral Scapula Posture (L) Protracted Palpation Assessment Location One Palpation Location Left shoulder Palpation Findings Soft Tissue Tightness Muscle Guarding Tenderness PT-OP-K Range of Motion Start: 11/13/17 09:44 Freq: Status: Active Protocol: Document 11/13/17 16:14 EA (Rec: 11/13/17 16:43 EA [id number]) Shoulder Goniometric Range of Motion Shoulder Measured in Degrees Left Active Testing Position Sitting Flexion 90 Extension 50 Abduction 75 Horizontal Abduction 20 External Rotation at 90 degrees 40 Abduction Internal Rotation 33 Shoulder ROM Limitations Shoulder ROM Limitations Soft Tissue Tightness Pain Comments Glenuhumeral capsular restriction ( ERot, ABD, IRot) PT-OP-L Special Tests Start: 11/13/17 09:44 Freq: Status: Active Protocol: Document 11/13/17 16:14 EA (Rec: 11/13/17 16:43 EA [id number]) Special Tests Shoulder Special Tests Posterior Impingement Test Results - Speed's Biceps Test Results - Empty Can Test Results - Beltrán Ramon Impingement Test Results - Elevation Impingement Test Results - Belly Press Test Results - PT-OP-M Strength Start: 11/13/17 09:44 Freq: Status: Active Protocol: Document 11/13/17 16:14 EA (Rec: 11/13/17 16:43 EA [id number]) Shoulder Strength Shoulder Manual Muscle Testing Left Flexion 4- Good- Extension 4- Good- Abduction (C5) 4- Good- Adduction 4+ Good+ External Rotation 4- Good- Internal Rotation 4- Good- Horizontal Abduction 4- Good- Horizontal Adduction 4 Good PT-OP-Q Treatments Start: 11/13/17 09:44 Freq: Status: Active Protocol: Document 12/24/17 10:28 EA (Rec: 12/24/17 11:16 EA [id number]) Cardio Equipment Upper Body Ergometer (UBE) Duration (Minutes) 6 Height 4-6.5 Therapeutic Exercises Sitting Exercises 1 Sitting Exercise Name Sebastián: flexion/ABD Reps/Minutes x 10 reps x 2 sets Standing Exercises 2 Standing Exercise Name wall slides: Flexion/ V form Equipment Used wall slider Reps/Minutes x 15 reps x 2 sets each 1 Standing Exercise Name T-Bar: Flexion, extnsion-IR Side bilateral Reps/Minutes x 15 reps x 2 sets Manual Therapy Treatment Soft Tissue Mobilization 1 Body Location left shoulder Mobilization Type Sustained Pressure Joint Mobilizations 1 Joint GH Direction Post/INF Grade III Body Position Supine Manual Techniques 1 Type Gentle PROM/Stretch Comments Perform contact-relax PNF PT-OP-R Modalities Start: 11/18/17 16:51 Freq: Status: Active Protocol: Document 12/24/17 10:28 EA (Rec: 12/24/17 11:16 EA [id number]) Hot Pack/Cold Pack Treatment Hot Pack Location L shoulder Patient Position Supine Patient Tolerance Good Comments cold pack PT-OP-T Assessment and Plan Start: 11/13/17 09:44 Freq: Status: Active Protocol: Document 12/24/17 10:28 EA (Rec: 12/24/17 11:16 EA [id number]) Physical Therapy Assessment Assessment Summary Assessment Tolerated treatment well. cont with joint mob. Physical Therapy Plan Next Visit Focus/Plan Next Note Type Treatment Note Next Visit Plan Progress as tolerated. Joint mob and scapular stab strengthening
--- NOTE | 2018-01-06 14:31 | PT.OTRE ---
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 Primary Care Provider Specialty: [facility] Address: [address] [place] [address], [facility] Email: [email or web address] Physical Therapy Re-Evaluation PT-OP-A Visit Information Start: 11/13/17 09:44 Freq: Status: Active Protocol: Document 01/06/18 13:57 EA (Rec: 01/06/18 14:27 EA [id number]) Out-Patient Physical Therapy Visit Information Visit Information Visit Type Treatment Note Visit Note Re-eval performed to this date Visit Start Time 13:00 Visit Stop Time 13:55 Total Visit Minutes 55 Visit Number 8 PT-OP-B Current Condition Start: 11/13/17 09:44 Freq: Status: Active Protocol: Document 01/06/18 14:27 EA (Rec: 01/06/18 14:29 EA [id number]) Current Condition History of Current Condition History of Current Condition Right thumb pain started on 1st week of nov and aggravated after; states after apinting the house where pain started; states recalled injury since prior to onset. Prior Treatments and Tests none PT-OP-C Subjective Start: 11/13/17 09:44 Freq: Status: Active Protocol: Document 01/06/18 13:57 EA (Rec: 01/06/18 14:27 EA [id number]) OP-PT Subjective Patient Comments Patient Comments Pt reports left shoulder is much feeling better and functionally 85%; states right thumb is bothering her much and had referral to treat right thumb. Patient Reported Progress Improving Patient Questionnaires Quick Dash- Upper Extremity Quick Dash UE Score 22 Quick Dash UE Impairment 20 to 39% Impaired (Score 20- 39) PT-OP-E Functional Tests Start: 11/13/17 09:44 Freq: Status: Active Protocol: Document 01/06/18 13:57 EA (Rec: 01/06/18 14:27 EA [id number]) Functional Tests Apley's Scratch Test Action 1: The subject is instructed to touch the opposite shoulder with his/her hand. This motion checks Glenohumeral adduction, internal rotation , horizontal adduction and scapular protraction Action 2: The subject is instructed to place his/her arm overhead and reach behind the neck to touch his/her upper back. This motion checks Glenohumeral abduction, external rotation and scapular upward rotation and elevation. Action 3: The subject puts his/her hand on the lower back and reaches upward as far as possible. This motion checks glenohumeral adduction, internal rotation and scapular retraction with downward rotation Action 2- Left T2 Action 2- Right T4 Action 3- Left T10 Action 3- Right T6 PT-OP-F Manual Assessment Start: 11/13/17 09:44 Freq: Status: Active Protocol: Document 01/06/18 13:57 EA (Rec: 01/06/18 14:27 EA [id number]) Manual Assessments Soft Tissue Assessment Soft Tissue Mobility Assessment Tight shoulder ER, ABD, IR ( capsular pattern) Hypomobility. Tight PPB/PPL tendon and capsule Joint Mobility Assessment Joint Mobility Assessment Hypomobility of GH joint, and 1st DIP joint PT-OP-J Posture/Palpation/Skin Start: 11/13/17 09:44 Freq: Status: Active Protocol: Document 01/06/18 13:57 EA (Rec: 01/06/18 14:27 EA [id number]) Palpation Assessment Location One Palpation Location Left shoulder, and thumb Palpation Findings Soft Tissue Tightness Muscle Guarding Tenderness PT-OP-K Range of Motion Start: 11/13/17 09:44 Freq: Status: Active Protocol: Document 01/06/18 13:57 EA (Rec: 01/06/18 14:27 EA [id number]) Shoulder Goniometric Range of Motion Shoulder Measured in Degrees Left Active Testing Position Sitting Flexion 155 Extension 160 Abduction 75 Horizontal Abduction 20 External Rotation at 90 degrees 85 Abduction Internal Rotation 35 Shoulder ROM Limitations Shoulder ROM Limitations Soft Tissue Tightness Pain Comments Glenuhumeral capsular restriction ( ERot, ABD, IRot) Thumb Goniometric Range of Motion Thumb Measured in Degrees Right Thumb ROM WFL Yes IP Flexion Active (degrees) 80 IP Extension Active (degrees) 10 PT-OP-L Special Tests Start: 11/13/17 09:44 Freq: Status: Active Protocol: Document 11/13/17 16:14 EA (Rec: 11/13/17 16:43 EA [id number]) Special Tests Shoulder Special Tests Posterior Impingement Test Results - Speed's Biceps Test Results - Empty Can Test Results - Beltrán Ramon Impingement Test Results - Elevation Impingement Test Results - Belly Press Test Results - PT-OP-M Strength Start: 11/13/17 09:44 Freq: Status: Active Protocol: Document 01/06/18 13:57 EA (Rec: 01/06/18 14:27 EA [id number]) Shoulder Strength Shoulder Manual Muscle Testing Left Flexion 4+ Good+ Extension 4- Good- Abduction (C5) 4+ Good+ Adduction 4+ Good+ External Rotation 4 Good Internal Rotation 4- Good- Horizontal Abduction 4 Good Horizontal Adduction 4 Good PT-OP-Q Treatments Start: 11/13/17 09:44 Freq: Status: Active Protocol: Document 01/06/18 13:57 EA (Rec: 01/06/18 14:27 EA [id number]) Gym Equipment Cable Column (Body Solid) Rows Resistance 3 plates Reps/Time x 12 reps x 2sets Lat Pull Down Resistance 3 plates Reps/Time x 12 x 2 sets Therapeutic Exercises Sitting Exercises 2 Sitting Exercise Name Shoulder ABD/Flexion Resistance 2-3 lbs Reps/Minutes x 12 reps x 2 sets 1 Sitting Exercise Name Sebastián: flexion/ABD Reps/Minutes x 10 reps x 2 sets Standing Exercises 2 Standing Exercise Name wall slides: Flexion/ V form Equipment Used wall slider Reps/Minutes x 15 reps x 2 sets each 1 Standing Exercise Name T-Bar: Flexion, extnsion-IR Side bilateral Reps/Minutes x 15 reps x 2 sets Other Exercises 1 Other Exercise Name D1, D2 F/E Resistance 2 LLBS wrist weights Reps/Minutes x 10 reps x 2 sets Comments Home comp Manual Therapy Treatment Soft Tissue Mobilization 2 Body Location PIP thumb-R Mobilization Type Cross-Friction Intensity/Depth Moderate Body Position Sitting 1 Body Location left shoulder Mobilization Type Sustained Pressure Joint Mobilizations 1 Joint GH/ Right thumb PIP Direction Post/INF Grade III Body Position Supine Manual Techniques 1 Type Gentle PROM/Stretch Comments Perform contact-relax PNF PT-OP-R Modalities Start: 11/18/17 16:51 Freq: Status: Active Protocol: Document 01/06/18 13:57 EA (Rec: 01/06/18 14:27 EA [id number]) Paraffin Bath Treatment Right Hand Treatment Technique Immersion Bath Number Wax Layers (layers) 6 Duration (minutes) 15 Patient Tolerance Good PT-OP-T Assessment and Plan Start: 11/13/17 09:44 Freq: Status: Active Protocol: Document 01/06/18 13:57 EA (Rec: 01/06/18 14:27 EA [id number]) Physical Therapy Assessment Rehab Potential Rehabilitation Potential Good Impairments Impairments Functional Activities Pain ROM Strength Goals Five Impairment Right thumb PS with activity of 8/10 Long-Term Goal (LTG) Patient will have 2/10 PS to right thum to improve functional use. LTG Duration 4 wks Four Impairment Impaired thumb ROM Long-Term Goal (LTG) Patient will extend thumb PIP joint to normal range. LTG Duration 4 wks Three Impairment QuickDash impairment scale of 20-30% impaired Long-Term Goal (LTG) Patient will have QuickDash impairement scale of 0-10% impaired LTG Duration 4 wks (Good progress) Two Impairment Impaired left shoulder strength Long-Term Goal (LTG) Patient will increase left shoulder strength by 1/2 grade to improve shoulder function or overhead and reaching behind movement LTG Duration 4 wks (Excellent progress) One Impairment Impaired L shoulder ROM Resistor Winder Goal (LTG) Patient will increase shoulder ROM to functional range (ER, ABD, IR) to improve shoulder functional mobility. LTG Duration 4 wks (Excellent progress.) Progress Towards Goals Progress Towards Goals Progressing Toward Goals Assessment Summary Assessment Patient left shoulder has excellent progress as to pain , ROM,and strength. Left shoulder will continue to benefit with skilled PT. 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 evident of joint swelling with crepitus but no signs acute inflammation. Patient will benefit with skilled PT to address left shoulder slight deficits and right thumb dysfunction. Physical Therapy Plan Frequency and Duration Frequency of Treatment 2x/Week Duration of Treatment 6 wks Plan of Care Start Date 01/06/18 Plan of Care End Date 02/17/18 Therapeutic Interventions Therapeutic Interventions Home Exercise Program Joint Mobilizations Manual Therapy Patient/Caregiver Education Self-Care/Home Management Soft Tissue Mobilization Therapeutic Exercises Modalities Cold Pack/Ice Massage Electric Stimulation Hot Packs Paraffin Bath Ultrasound Next Visit Focus/Plan Next Note Type Treatment Note Next Visit Plan Treatment to right thumb, HEP. To focus more on right thumb.
--- NOTE | 2018-01-06 14:31 | PT.OPPOC ---
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 LTG Duration 4 wks Four Impairment Impaired thumb ROM Correction Goal (LTG) Patient will extend thumb PIP joint to normal range. LTG Duration 4 wks Three Impairment QuickDash impairment scale of 20-30% impaired Rag Sorter And Cutter Goal (LTG) Patient will have QuickDash impairment scale of 0-10% impaired LTG Duration 4 wks (Good progress) Two Impairment Impaired left shoulder strength Correction Goal (LTG) Patient will increase left shoulder strength by 1/2 grade to improve shoulder function or overhead and reaching behind movement LTG Duration 4 wks (Excellent progress) One Impairment Impaired L shoulder ROM Rag Sorter And Cutter Goal (LTG) Patient will increase shoulder ROM to functional range (ER, ABD, IR) to improve shoulder functional mobility. LTG Duration 4 wks (Excellent progress.) Progress Towards Goals Progress Towards Goals Progressing Toward Goals Assessment Summary Assessment Patient left shoulder has excellent progress as to pain , ROM,and strength. Left shoulder will continue to benefit with skilled PT. 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 evident of joint swelling with crepitus but no signs acute inflammation. Patient will benefit with skilled PT to address left shoulder slight deficits and right thumb dysfunction. Physical Therapy Plan Frequency and Duration Frequency of Treatment 2x/Week Duration of Treatment 6 wks Plan of Care Start Date 01/06/18 Plan of Care End Date 02/17/18 Therapeutic Interventions Therapeutic Interventions Home Exercise Program Joint Mobilizations Manual Therapy Patient/Caregiver Education Self-Care/Home Management Soft Tissue Mobilization Therapeutic Exercises Modalities Cold Pack/Ice Massage Electric Stimulation Hot Packs Paraffin Bath Ultrasound Next Visit Focus/Plan Next Note Type Treatment Note Next Visit Plan Treatment to right thumb, HEP. To focus more on right thumb. Plan of Care Dates Plan of Care Start Date 01/06/18 Plan of Care End Date 02/17/18 Please Sign and Return: I have reviewed this Plan of Care and certify that the skilled therapy services above are required to meet the patient?s needs. Physician Signature Date Printed Name and Credentials Clinical Instructor Signature Printed Name and Credentials
--- NOTE | 2018-01-08 12:11 | PT.OTN ---
Current Diagnoses Pain in left shoulder (01/08/18) Physical Therapy Treatment Note PT-OP-A Visit Information Start: 11/13/17 09:44 Freq: Status: Active Protocol: Document 01/08/18 09:48 EA (Rec: 01/08/18 11:01 EA [id number]) Out-Patient Physical Therapy Visit Information Visit Information Visit Type Treatment Note Visit Start Time 09:45 Visit Stop Time 10:40 Visit Number 9 PT-OP-B Current Condition Start: 11/13/17 09:44 Freq: Status: Active Protocol: Document 01/06/18 14:27 EA (Rec: 01/06/18 14:29 EA [id number]) Current Condition History of Current Condition History of Current Condition Right thumb pain started on 1st week of nov and aggravated after; states after apinting the house where pain started; states recalled injury since prior to onset. Prior Treatments and Tests none PT-OP-C Subjective Start: 11/13/17 09:44 Freq: Status: Active Protocol: Document 01/08/18 09:48 EA (Rec: 01/08/18 11:01 EA [id number]) OP-PT Subjective Patient Comments Patient Comments Pt reports thumb much feel better; states she complaint with HEP and though she will be out for few weeks of vacation. PT-OP-E Functional Tests Start: 11/13/17 09:44 Freq: Status: Active Protocol: Document 01/06/18 13:57 EA (Rec: 01/06/18 14:27 EA [id number]) Functional Tests Apley's Scratch Test Action 1: The subject is instructed to touch the opposite shoulder with his/her hand. This motion checks Glenohumeral adduction, internal rotation , horizontal adduction and scapular protraction Action 2: The subject is instructed to place his/her arm overhead and reach behind the neck to touch his/her upper back. This motion checks Glenohumeral abduction, external rotation and scapular upward rotation and elevation. Action 3: The subject puts his/her hand on the lower back and reaches upward as far as possible. This motion checks glenohumeral adduction, internal rotation and scapular retraction with downward rotation Action 2- Left T2 Action 2- Right T4 Action 3- Left T10 Action 3- Right T6 PT-OP-F Manual Assessment Start: 11/13/17 09:44 Freq: Status: Active Protocol: Document 01/06/18 13:57 EA (Rec: 01/06/18 14:27 EA [id number]) Manual Assessments Soft Tissue Assessment Soft Tissue Mobility Assessment Tight shoulder ER, ABD, IR ( capsular pattern) Hypomobility. Tight PPB/PPL tendon and capsule Joint Mobility Assessment Joint Mobility Assessment Hypomobility of GH joint, and 1st DIP joint PT-OP-J Posture/Palpation/Skin Start: 11/13/17 09:44 Freq: Status: Active Protocol: Document 01/06/18 13:57 EA (Rec: 01/06/18 14:27 EA [id number]) Palpation Assessment Location One Palpation Location Left shoulder, and thumb Palpation Findings Soft Tissue Tightness Muscle Guarding Tenderness PT-OP-K Range of Motion Start: 11/13/17 09:44 Freq: Status: Active Protocol: Document 01/06/18 13:57 EA (Rec: 01/06/18 14:27 EA [id number]) Shoulder Goniometric Range of Motion Shoulder Measured in Degrees Left Active Testing Position Sitting Flexion 155 Extension 160 Abduction 75 Horizontal Abduction 20 External Rotation at 90 degrees 85 Abduction Internal Rotation 35 Shoulder ROM Limitations Shoulder ROM Limitations Soft Tissue Tightness Pain Comments Glenuhumeral capsular restriction ( ERot, ABD, IRot) Thumb Goniometric Range of Motion Thumb Measured in Degrees Right Thumb ROM WFL Yes IP Flexion Active (degrees) 80 IP Extension Active (degrees) 10 PT-OP-L Special Tests Start: 11/13/17 09:44 Freq: Status: Active Protocol: Document 11/13/17 16:14 EA (Rec: 11/13/17 16:43 EA [id number]) Special Tests Shoulder Special Tests Posterior Impingement Test Results - Speed's Biceps Test Results - Empty Can Test Results - Beltrán Ramon Impingement Test Results - Elevation Impingement Test Results - Belly Press Test Results - PT-OP-M Strength Start: 11/13/17 09:44 Freq: Status: Active Protocol: Document 01/06/18 13:57 EA (Rec: 01/06/18 14:27 EA [id number]) Shoulder Strength Shoulder Manual Muscle Testing Left Flexion 4+ Good+ Extension 4- Good- Abduction (C5) 4+ Good+ Adduction 4+ Good+ External Rotation 4 Good Internal Rotation 4- Good- Horizontal Abduction 4 Good Horizontal Adduction 4 Good PT-OP-Q Treatments Start: 11/13/17 09:44 Freq: Status: Active Protocol: Document 01/08/18 09:48 EA (Rec: 01/08/18 11:01 EA [id number]) Cardio Equipment Upper Body Ergometer (UBE) Duration (Minutes) 6 Height 4-6.5 Gym Equipment Cable Column (Body Solid) Rows Resistance 3 plates Reps/Time x 12 reps x 2sets Lat Pull Down Resistance 3 plates Reps/Time x 12 x 2 sets Therapeutic Exercises Sitting Exercises 2 Sitting Exercise Name Shoulder ABD/Flexion Resistance 2-3 lbs Reps/Minutes x 12 reps x 2 sets 1 Sitting Exercise Name Sebastián: flexion/ABD Reps/Minutes x 10 reps x 2 sets Standing Exercises 1 Standing Exercise Name T-Bar: Flexion, extnsion-IR Side bilateral Reps/Minutes x 15 reps x 2 sets Other Exercises 1 Other Exercise Name D1, D2 F/E Resistance 2 LLBS wrist weights Reps/Minutes x 10 reps x 2 sets Comments Home comp Manual Therapy Treatment Soft Tissue Mobilization 2 Body Location PIP thumb-R Mobilization Type Cross-Friction Intensity/Depth Moderate Body Position Sitting 1 Body Location left shoulder Mobilization Type Sustained Pressure Joint Mobilizations 1 Joint GH/ Right thumb PIP Direction Post/INF Grade III Body Position Supine Manual Techniques 1 Type Gentle PROM/Stretch Comments Perform contact-relax PNF PT-OP-R Modalities Start: 11/18/17 16:51 Freq: Status: Active Protocol: Document 01/08/18 09:48 EA (Rec: 01/08/18 11:01 EA [id number]) Hot Pack/Cold Pack Treatment Hot Pack Location L shoulder Patient Position Supine Patient Tolerance Good Comments cold pack Paraffin Bath Treatment Right Hand Treatment Technique Immersion Bath Number Wax Layers (layers) 6 Duration (minutes) 15 Patient Tolerance Good Ultrasound Therapy Treatment Right Anterior Thumb Treatment Duration (minutes) 4 Coupling Medium Water Frequency Setting (mHz) 1 Mode Setting Continuous Intensity Setting (w/cm2) 1.0 PT-OP-T Assessment and Plan Start: 11/13/17 09:44 Freq: Status: Active Protocol: Document 01/08/18 09:48 EA (Rec: 01/08/18 11:01 EA [id number]) Physical Therapy Assessment Assessment Summary Assessment Improved shoulder mobility and strength. Thumb tenderness is less at this time. Pt is progressing well. Physical Therapy Plan Next Visit Focus/Plan Next Note Type Treatment Note Next Visit Plan Treatment to right thumb, HEP. To focus more on right thumb.
--- NOTE | 2018-01-27 13:48 | PT.OTN ---
Current Diagnoses Pain in left shoulder (01/27/18) Physical Therapy Treatment Note PT-OP-A Visit Information Start: 11/13/17 09:44 Freq: Status: Active Protocol: Document 01/27/18 11:14 EA (Rec: 01/27/18 11:17 EA [id number]) Out-Patient Physical Therapy Visit Information Visit Information Visit Type Treatment Note Visit Start Time 10:30 Visit Stop Time 11:15 Visit Number 10 PT-OP-B Current Condition Start: 11/13/17 09:44 Freq: Status: Active Protocol: Document 01/06/18 14:27 EA (Rec: 01/06/18 14:29 EA [id number]) Current Condition History of Current Condition History of Current Condition Right thumb pain started on 1st week of nov and aggravated after; states after apinting the house where pain started; states recalled injury since prior to onset. Prior Treatments and Tests none PT-OP-C Subjective Start: 11/13/17 09:44 Freq: Status: Active Protocol: Document 01/27/18 11:14 EA (Rec: 01/27/18 11:17 EA [id number]) OP-PT Subjective Patient Comments Patient Comments Pt reports left shoulder is improving and right thumb is improving but slowly. PT-OP-E Functional Tests Start: 11/13/17 09:44 Freq: Status: Active Protocol: Document 01/06/18 13:57 EA (Rec: 01/06/18 14:27 EA [id number]) Functional Tests Apley's Scratch Test Action 1: The subject is instructed to touch the opposite shoulder with his/her hand. This motion checks Glenohumeral adduction, internal rotation , horizontal adduction and scapular protraction Action 2: The subject is instructed to place his/her arm overhead and reach behind the neck to touch his/her upper back. This motion checks Glenohumeral abduction, external rotation and scapular upward rotation and elevation. Action 3: The subject puts his/her hand on the lower back and reaches upward as far as possible. This motion checks glenohumeral adduction, internal rotation and scapular retraction with downward rotation Action 2- Left T2 Action 2- Right T4 Action 3- Left T10 Action 3- Right T6 PT-OP-F Manual Assessment Start: 11/13/17 09:44 Freq: Status: Active Protocol: Document 01/06/18 13:57 EA (Rec: 01/06/18 14:27 EA [id number]) Manual Assessments Soft Tissue Assessment Soft Tissue Mobility Assessment Tight shoulder ER, ABD, IR ( capsular pattern) Hypomobility. Tight PPB/PPL tendon and capsule Joint Mobility Assessment Joint Mobility Assessment Hypomobility of GH joint, and 1st DIP joint PT-OP-J Posture/Palpation/Skin Start: 11/13/17 09:44 Freq: Status: Active Protocol: Document 01/06/18 13:57 EA (Rec: 01/06/18 14:27 EA [id number]) Palpation Assessment Location One Palpation Location Left shoulder, and thumb Palpation Findings Soft Tissue Tightness Muscle Guarding Tenderness PT-OP-K Range of Motion Start: 11/13/17 09:44 Freq: Status: Active Protocol: Document 01/06/18 13:57 EA (Rec: 01/06/18 14:27 EA [id number]) Shoulder Goniometric Range of Motion Shoulder Measured in Degrees Left Active Testing Position Sitting Flexion 155 Extension 160 Abduction 75 Horizontal Abduction 20 External Rotation at 90 degrees 85 Abduction Internal Rotation 35 Shoulder ROM Limitations Shoulder ROM Limitations Soft Tissue Tightness Pain Comments Glenuhumeral capsular restriction ( ERot, ABD, IRot) Thumb Goniometric Range of Motion Thumb Measured in Degrees Right Thumb ROM WFL Yes IP Flexion Active (degrees) 80 IP Extension Active (degrees) 10 PT-OP-L Special Tests Start: 11/13/17 09:44 Freq: Status: Active Protocol: Document 11/13/17 16:14 EA (Rec: 11/13/17 16:43 EA [id number]) Special Tests Shoulder Special Tests Posterior Impingement Test Results - Speed's Biceps Test Results - Empty Can Test Results - Beltrán Ramon Impingement Test Results - Elevation Impingement Test Results - Belly Press Test Results - PT-OP-M Strength Start: 11/13/17 09:44 Freq: Status: Active Protocol: Document 01/06/18 13:57 EA (Rec: 01/06/18 14:27 EA [id number]) Shoulder Strength Shoulder Manual Muscle Testing Left Flexion 4+ Good+ Extension 4- Good- Abduction (C5) 4+ Good+ Adduction 4+ Good+ External Rotation 4 Good Internal Rotation 4- Good- Horizontal Abduction 4 Good Horizontal Adduction 4 Good PT-OP-Q Treatments Start: 11/13/17 09:44 Freq: Status: Active Protocol: Document 01/27/18 11:14 EA (Rec: 01/27/18 11:17 EA [id number]) Cardio Equipment Upper Body Ergometer (UBE) Duration (Minutes) 6 Height 4-6.5 Therapeutic Exercises Standing Exercises 1 Standing Exercise Name T-Bar: Flexion, extnsion-IR Side bilateral Reps/Minutes x 15 reps x 2 sets Other Exercises 1 Other Exercise Name D1, D2 F/E Resistance 2 LLBS wrist weights Reps/Minutes x 10 reps x 2 sets Comments Home comp Manual Therapy Treatment Soft Tissue Mobilization 2 Body Location PIP thumb-R Mobilization Type Cross-Friction Intensity/Depth Moderate Body Position Sitting Joint Mobilizations 1 Joint GH/ Right thumb PIP Direction Post/INF Grade III Body Position Supine PT-OP-R Modalities Start: 11/18/17 16:51 Freq: Status: Active Protocol: Document 01/27/18 11:14 EA (Rec: 01/27/18 11:17 EA [id number]) Paraffin Bath Treatment Right Hand Treatment Technique Immersion Bath Number Wax Layers (layers) 6 Duration (minutes) 15 Patient Tolerance Good PT-OP-T Assessment and Plan Start: 11/13/17 09:44 Freq: Status: Active Protocol: Document 01/27/18 11:14 EA (Rec: 01/27/18 11:17 EA [id number]) Physical Therapy Assessment Assessment Summary Assessment Improved shoulder mobility and strength. Decreased thumb PIP joint ROM but much better after joint mob. Patient continue to progress and will continue to benefit with skilled PT. Physical Therapy Plan Next Visit Focus/Plan Next Note Type Treatment Note Next Visit Plan Treatment to right thumb, HEP. To focus more on right thumb.
--- NOTE | 2018-01-29 11:12 | PT.OTN ---
Current Diagnoses Pain in left shoulder (01/29/18) Physical Therapy Treatment Note PT-OP-A Visit Information Start: 11/13/17 09:44 Freq: Status: Active Protocol: Document 01/29/18 11:07 EA (Rec: 01/29/18 11:12 EA [id number]) Out-Patient Physical Therapy Visit Information Visit Information Visit Type Treatment Note Visit Start Time 10:30 Visit Stop Time 11:15 Visit Number 11 PT-OP-B Current Condition Start: 11/13/17 09:44 Freq: Status: Active Protocol: Document 01/06/18 14:27 EA (Rec: 01/06/18 14:29 EA [id number]) Current Condition History of Current Condition History of Current Condition Right thumb pain started on 1st week of nov and aggravated after; states after apinting the house where pain started; states recalled injury since prior to onset. Prior Treatments and Tests none PT-OP-C Subjective Start: 11/13/17 09:44 Freq: Status: Active Protocol: Document 01/29/18 11:07 EA (Rec: 01/29/18 11:12 EA [id number]) OP-PT Subjective Patient Comments Patient Comments Pt reports right thumb bothers her most than the shoulder; states wants to focus on her thumb today. PT-OP-E Functional Tests Start: 11/13/17 09:44 Freq: Status: Active Protocol: Document 01/06/18 13:57 EA (Rec: 01/06/18 14:27 EA [id number]) Functional Tests Apley's Scratch Test Action 1: The subject is instructed to touch the opposite shoulder with his/her hand. This motion checks Glenohumeral adduction, internal rotation , horizontal adduction and scapular protraction Action 2: The subject is instructed to place his/her arm overhead and reach behind the neck to touch his/her upper back. This motion checks Glenohumeral abduction, external rotation and scapular upward rotation and elevation. Action 3: The subject puts his/her hand on the lower back and reaches upward as far as possible. This motion checks glenohumeral adduction, internal rotation and scapular retraction with downward rotation Action 2- Left T2 Action 2- Right T4 Action 3- Left T10 Action 3- Right T6 PT-OP-F Manual Assessment Start: 11/13/17 09:44 Freq: Status: Active Protocol: Document 01/06/18 13:57 EA (Rec: 01/06/18 14:27 EA [id number]) Manual Assessments Soft Tissue Assessment Soft Tissue Mobility Assessment Tight shoulder ER, ABD, IR ( capsular pattern) Hypomobility. Tight PPB/PPL tendon and capsule Joint Mobility Assessment Joint Mobility Assessment Hypomobility of GH joint, and 1st DIP joint PT-OP-J Posture/Palpation/Skin Start: 11/13/17 09:44 Freq: Status: Active Protocol: Document 01/06/18 13:57 EA (Rec: 01/06/18 14:27 EA [id number]) Palpation Assessment Location One Palpation Location Left shoulder, and thumb Palpation Findings Soft Tissue Tightness Muscle Guarding Tenderness PT-OP-K Range of Motion Start: 11/13/17 09:44 Freq: Status: Active Protocol: Document 01/06/18 13:57 EA (Rec: 01/06/18 14:27 EA [id number]) Shoulder Goniometric Range of Motion Shoulder Measured in Degrees Left Active Testing Position Sitting Flexion 155 Extension 160 Abduction 75 Horizontal Abduction 20 External Rotation at 90 degrees 85 Abduction Internal Rotation 35 Shoulder ROM Limitations Shoulder ROM Limitations Soft Tissue Tightness Pain Comments Glenuhumeral capsular restriction ( ERot, ABD, IRot) Thumb Goniometric Range of Motion Thumb Measured in Degrees Right Thumb ROM WFL Yes IP Flexion Active (degrees) 80 IP Extension Active (degrees) 10 PT-OP-L Special Tests Start: 11/13/17 09:44 Freq: Status: Active Protocol: Document 11/13/17 16:14 EA (Rec: 11/13/17 16:43 EA [id number]) Special Tests Shoulder Special Tests Posterior Impingement Test Results - Speed's Biceps Test Results - Empty Can Test Results - Beltrán Ramon Impingement Test Results - Elevation Impingement Test Results - Belly Press Test Results - PT-OP-M Strength Start: 11/13/17 09:44 Freq: Status: Active Protocol: Document 01/06/18 13:57 EA (Rec: 01/06/18 14:27 EA [id number]) Shoulder Strength Shoulder Manual Muscle Testing Left Flexion 4+ Good+ Extension 4- Good- Abduction (C5) 4+ Good+ Adduction 4+ Good+ External Rotation 4 Good Internal Rotation 4- Good- Horizontal Abduction 4 Good Horizontal Adduction 4 Good PT-OP-Q Treatments Start: 11/13/17 09:44 Freq: Status: Active Protocol: Document 01/29/18 11:07 EA (Rec: 01/29/18 11:12 EA [id number]) Therapeutic Exercises Sitting Exercises 2 Sitting Exercise Name Shoulder ABD/Flexion Resistance 2-3 lbs Reps/Minutes x 12 reps x 2 sets Standing Exercises 1 Standing Exercise Name T-Bar: Flexion, extnsion-IR Side bilateral Reps/Minutes x 15 reps x 2 sets Other Exercises 1 Other Exercise Name D1, D2 F/E Resistance 2 LLBS wrist weights Reps/Minutes x 10 reps x 2 sets Comments Home comp Manual Therapy Treatment Soft Tissue Mobilization 2 Body Location PIP thumb-R Mobilization Type Cross-Friction Intensity/Depth Moderate Body Position Sitting Joint Mobilizations 1 Joint GH/ Right thumb PIP Direction Post/INF Grade III Body Position Supine Manual Techniques 1 Type Gentle PROM/Stretch Comments Perform contact-relax PNF PT-OP-R Modalities Start: 11/18/17 16:51 Freq: Status: Active Protocol: Document 01/29/18 11:07 EA (Rec: 01/29/18 11:12 EA [id number]) Ultrasound Therapy Treatment Right Anterior Thumb Treatment Duration (minutes) 5 Coupling Medium Water Frequency Setting (mHz) 1 Mode Setting Continuous Intensity Setting (w/cm2) 1.0 PT-OP-T Assessment and Plan Start: 11/13/17 09:44 Freq: Status: Active Protocol: Document 01/29/18 11:07 EA (Rec: 01/29/18 11:12 EA [id number]) Physical Therapy Assessment Assessment Summary Assessment Noted improved right thumb ROM after manual PT; left shoulder has near to full ABD/ Flex AROM. Overall patient is progressing well. Physical Therapy Plan Next Visit Focus/Plan Next Note Type Treatment Note Next Visit Plan Cont. with current plan.
--- NOTE | 2018-02-02 15:25 | PT.OTN ---
Current Diagnoses Pain in left shoulder (02/02/18) Physical Therapy Treatment Note PT-OP-A Visit Information Start: 11/13/17 09:44 Freq: Status: Active Protocol: Document 02/02/18 09:06 EA (Rec: 02/02/18 09:48 EA [id number]) Out-Patient Physical Therapy Visit Information Visit Information Visit Type Treatment Note Visit Start Time 09:00 Visit Stop Time 09:45 Total Visit Minutes 40 Visit Number 12 PT-OP-B Current Condition Start: 11/13/17 09:44 Freq: Status: Active Protocol: Document 01/06/18 14:27 EA (Rec: 01/06/18 14:29 EA [id number]) Current Condition History of Current Condition History of Current Condition Right thumb pain started on 1st week of nov and aggravated after; states after apinting the house where pain started; states recalled injury since prior to onset. Prior Treatments and Tests none PT-OP-C Subjective Start: 11/13/17 09:44 Freq: Status: Active Protocol: Document 02/02/18 09:06 EA (Rec: 02/02/18 09:48 EA [id number]) OP-PT Subjective Patient Comments Patient Comments Pt reports my left shoulder is like new and feels good; states right thumb cont. to bother her. Patient Reported Progress Improving PT-OP-E Functional Tests Start: 11/13/17 09:44 Freq: Status: Active Protocol: Document 01/06/18 13:57 EA (Rec: 01/06/18 14:27 EA [id number]) Functional Tests Apley's Scratch Test Action 1: The subject is instructed to touch the opposite shoulder with his/her hand. This motion checks Glenohumeral adduction, internal rotation , horizontal adduction and scapular protraction Action 2: The subject is instructed to place his/her arm overhead and reach behind the neck to touch his/her upper back. This motion checks Glenohumeral abduction, external rotation and scapular upward rotation and elevation. Action 3: The subject puts his/her hand on the lower back and reaches upward as far as possible. This motion checks glenohumeral adduction, internal rotation and scapular retraction with downward rotation Action 2- Left T2 Action 2- Right T4 Action 3- Left T10 Action 3- Right T6 PT-OP-F Manual Assessment Start: 11/13/17 09:44 Freq: Status: Active Protocol: Document 01/06/18 13:57 EA (Rec: 01/06/18 14:27 EA [id number]) Manual Assessments Soft Tissue Assessment Soft Tissue Mobility Assessment Tight shoulder ER, ABD, IR ( capsular pattern) Hypomobility. Tight PPB/PPL tendon and capsule Joint Mobility Assessment Joint Mobility Assessment Hypomobility of GH joint, and 1st DIP joint PT-OP-J Posture/Palpation/Skin Start: 11/13/17 09:44 Freq: Status: Active Protocol: Document 01/06/18 13:57 EA (Rec: 01/06/18 14:27 EA [id number]) Palpation Assessment Location One Palpation Location Left shoulder, and thumb Palpation Findings Soft Tissue Tightness Muscle Guarding Tenderness PT-OP-K Range of Motion Start: 11/13/17 09:44 Freq: Status: Active Protocol: Document 01/06/18 13:57 EA (Rec: 01/06/18 14:27 EA [id number]) Shoulder Goniometric Range of Motion Shoulder Measured in Degrees Left Active Testing Position Sitting Flexion 155 Extension 160 Abduction 75 Horizontal Abduction 20 External Rotation at 90 degrees 85 Abduction Internal Rotation 35 Shoulder ROM Limitations Shoulder ROM Limitations Soft Tissue Tightness Pain Comments Glenuhumeral capsular restriction ( ERot, ABD, IRot) Thumb Goniometric Range of Motion Thumb Measured in Degrees Right Thumb ROM WFL Yes IP Flexion Active (degrees) 80 IP Extension Active (degrees) 10 PT-OP-L Special Tests Start: 11/13/17 09:44 Freq: Status: Active Protocol: Document 11/13/17 16:14 EA (Rec: 11/13/17 16:43 EA [id number]) Special Tests Shoulder Special Tests Posterior Impingement Test Results - Speed's Biceps Test Results - Empty Can Test Results - [place] Impingement Test Results - Elevation Impingement Test Results - Belly Press Test Results - PT-OP-M Strength Start: 11/13/17 09:44 Freq: Status: Active Protocol: Document 01/06/18 13:57 EA (Rec: 01/06/18 14:27 EA [id number]) Shoulder Strength Shoulder Manual Muscle Testing Left Flexion 4+ Good+ Extension 4- Good- Abduction (C5) 4+ Good+ Adduction 4+ Good+ External Rotation 4 Good Internal Rotation 4- Good- Horizontal Abduction 4 Good Horizontal Adduction 4 Good PT-OP-Q Treatments Start: 11/13/17 09:44 Freq: Status: Active Protocol: Document 02/02/18 09:06 EA (Rec: 02/02/18 09:48 EA [id number]) Cardio Equipment Upper Body Ergometer (UBE) Duration (Minutes) 6 Height 4-7.5 Therapeutic Exercises Sitting Exercises 2 Sitting Exercise Name Shoulder ABD/Flexion Resistance 2-3 lbs Reps/Minutes x 12 reps x 2 sets Other Exercises 1 Other Exercise Name D1, D2 F/E Resistance 2 LLBS wrist weights Reps/Minutes x 10 reps x 2 sets Comments Home comp Manual Therapy Treatment Soft Tissue Mobilization 2 Body Location PIP thumb-R Mobilization Type Cross-Friction Intensity/Depth Moderate Body Position Sitting Joint Mobilizations 1 Joint GH/ Right thumb PIP Direction Post/INF Grade III Body Position Supine Manual Techniques 1 Type Gentle PROM/Stretch Comments Perform contact-relax PNF PT-OP-R Modalities Start: 11/18/17 16:51 Freq: Status: Active Protocol: Document 02/02/18 09:06 EA (Rec: 02/02/18 09:48 EA [id number]) Paraffin Bath Treatment Right Hand Treatment Technique Immersion Bath Number Wax Layers (layers) 6 Duration (minutes) 15 Patient Tolerance Good Ultrasound Therapy Treatment Right Anterior Thumb Treatment Duration (minutes) 5 Coupling Medium Water Frequency Setting (mHz) 1 Mode Setting Continuous Intensity Setting (w/cm2) 1.0 PT-OP-T Assessment and Plan Start: 11/13/17 09:44 Freq: Status: Active Protocol: Document 02/02/18 09:06 EA (Rec: 02/02/18 09:48 EA [id number]) Physical Therapy Assessment Assessment Summary Assessment Pt tolerated treatment well. Continued improvement to left shoulder and thumb as well. Physical Therapy Plan Next Visit Focus/Plan Next Note Type Treatment Note Next Visit Plan Cont. with current plan. Ad ac as tolerated
--- NOTE | 2018-02-10 12:13 | PT.OTN ---
Current Diagnoses Pain in left shoulder (02/10/18) Physical Therapy Treatment Note PT-OP-A Visit Information Start: 11/13/17 09:44 Freq: Status: Active Protocol: Document 02/10/18 09:14 EA (Rec: 02/10/18 09:40 EA [id number]) Out-Patient Physical Therapy Visit Information Visit Information Visit Type Treatment Note Visit Start Time 09:00 Visit Stop Time 09:45 Total Visit Minutes 40 Visit Number 13 PT-OP-B Current Condition Start: 11/13/17 09:44 Freq: Status: Active Protocol: Document 01/06/18 14:27 EA (Rec: 01/06/18 14:29 EA [id number]) Current Condition History of Current Condition History of Current Condition Right thumb pain started on 1st week of nov and aggravated after; states after apinting the house where pain started; states recalled injury since prior to onset. Prior Treatments and Tests none PT-OP-C Subjective Start: 11/13/17 09:44 Freq: Status: Active Protocol: Document 02/10/18 09:14 EA (Rec: 02/10/18 09:40 EA [id number]) OP-PT Subjective Patient Comments Patient Comments Pt reports left shoulder is much better; states right thumb cont. to get difficult with sewing and other gripping activities; states consistent with HEP. PT-OP-E Functional Tests Start: 11/13/17 09:44 Freq: Status: Active Protocol: Document 01/06/18 13:57 EA (Rec: 01/06/18 14:27 EA [id number]) Functional Tests Apley's Scratch Test Action 1: The subject is instructed to touch the opposite shoulder with his/her hand. This motion checks Glenohumeral adduction, internal rotation , horizontal adduction and scapular protraction Action 2: The subject is instructed to place his/her arm overhead and reach behind the neck to touch his/her upper back. This motion checks Glenohumeral abduction, external rotation and scapular upward rotation and elevation. Action 3: The subject puts his/her hand on the lower back and reaches upward as far as possible. This motion checks glenohumeral adduction, internal rotation and scapular retraction with downward rotation Action 2- Left T2 Action 2- Right T4 Action 3- Left T10 Action 3- Right T6 PT-OP-F Manual Assessment Start: 11/13/17 09:44 Freq: Status: Active Protocol: Document 01/06/18 13:57 EA (Rec: 01/06/18 14:27 EA [id number]) Manual Assessments Soft Tissue Assessment Soft Tissue Mobility Assessment Tight shoulder ER, ABD, IR ( capsular pattern) Hypomobility. Tight PPB/PPL tendon and capsule Joint Mobility Assessment Joint Mobility Assessment Hypomobility of GH joint, and 1st DIP joint PT-OP-J Posture/Palpation/Skin Start: 11/13/17 09:44 Freq: Status: Active Protocol: Document 01/06/18 13:57 EA (Rec: 01/06/18 14:27 EA [id number]) Palpation Assessment Location One Palpation Location Left shoulder, and thumb Palpation Findings Soft Tissue Tightness Muscle Guarding Tenderness PT-OP-K Range of Motion Start: 11/13/17 09:44 Freq: Status: Active Protocol: Document 01/06/18 13:57 EA (Rec: 01/06/18 14:27 EA [id number]) Shoulder Goniometric Range of Motion Shoulder Measured in Degrees Left Active Testing Position Sitting Flexion 155 Extension 160 Abduction 75 Horizontal Abduction 20 External Rotation at 90 degrees 85 Abduction Internal Rotation 35 Shoulder ROM Limitations Shoulder ROM Limitations Soft Tissue Tightness Pain Comments Glenuhumeral capsular restriction ( ERot, ABD, IRot) Thumb Goniometric Range of Motion Thumb Measured in Degrees Right Thumb ROM WFL Yes IP Flexion Active (degrees) 80 IP Extension Active (degrees) 10 PT-OP-L Special Tests Start: 11/13/17 09:44 Freq: Status: Active Protocol: Document 11/13/17 16:14 EA (Rec: 11/13/17 16:43 EA [id number]) Special Tests Shoulder Special Tests Posterior Impingement Test Results - Speed's Biceps Test Results - Empty Can Test Results - [place] Ramon Impingement Test Results - Elevation Impingement Test Results - Belly Press Test Results - PT-OP-M Strength Start: 11/13/17 09:44 Freq: Status: Active Protocol: Document 01/06/18 13:57 EA (Rec: 01/06/18 14:27 EA [id number]) Shoulder Strength Shoulder Manual Muscle Testing Left Flexion 4+ Good+ Extension 4- Good- Abduction (C5) 4+ Good+ Adduction 4+ Good+ External Rotation 4 Good Internal Rotation 4- Good- Horizontal Abduction 4 Good Horizontal Adduction 4 Good PT-OP-Q Treatments Start: 11/13/17 09:44 Freq: Status: Active Protocol: Document 02/10/18 09:14 EA (Rec: 02/10/18 09:40 EA [id number]) Therapeutic Exercises Sitting Exercises 3 Sitting Exercise Name Thumb: flexion/extension/ABD/ ADD Equipment Used paraffin/alban do, rubber band Reps/Minutes x15 reps x 2 sets Manual Therapy Treatment Soft Tissue Mobilization 2 Body Location PIP thumb-R Mobilization Type Cross-Friction Intensity/Depth Moderate Body Position Sitting Joint Mobilizations 1 Joint GH/ Right thumb PIP Direction Post/INF Grade III Body Position Supine PT-OP-R Modalities Start: 11/18/17 16:51 Freq: Status: Active Protocol: Document 02/10/18 09:14 EA (Rec: 02/10/18 09:40 EA [id number]) Paraffin Bath Treatment Right Hand Treatment Technique Immersion Bath Number Wax Layers (layers) 6 Duration (minutes) 15 Patient Tolerance Good Ultrasound Therapy Treatment Right Anterior Thumb Treatment Duration (minutes) 5 Coupling Medium Water Frequency Setting (mHz) 1 Mode Setting Continuous Intensity Setting (w/cm2) 1.0 PT-OP-T Assessment and Plan Start: 11/13/17 09:44 Freq: Status: Active Protocol: Document 02/10/18 09:14 EA (Rec: 02/10/18 09:40 EA [id number]) Physical Therapy Assessment Assessment Summary Assessment Improved thumb mobility with no increased of symptoms after session. Recommends to cont. HEP. Pt cont to progress. Physical Therapy Plan Next Visit Focus/Plan Next Note Type Treatment Note Next Visit Plan Cont. with current plan. Advance as tolerated
--- NOTE | 2018-02-12 12:12 | PT.OTN ---
Current Diagnoses Pain in left shoulder (02/12/18) Physical Therapy Treatment Note PT-OP-A Visit Information Start: 11/13/17 09:44 Freq: Status: Active Protocol: Document 02/12/18 09:07 EA (Rec: 02/12/18 09:44 EA [id number]) Out-Patient Physical Therapy Visit Information Visit Information Visit Type Treatment Note Visit Start Time 09:00 Visit Stop Time 09:45 Total Visit Minutes 38 Visit Number 14 PT-OP-B Current Condition Start: 11/13/17 09:44 Freq: Status: Active Protocol: Document 01/06/18 14:27 EA (Rec: 01/06/18 14:29 EA [id number]) Current Condition History of Current Condition History of Current Condition Right thumb pain started on 1st week of nov and aggravated after; states after apinting the house where pain started; states recalled injury since prior to onset. Prior Treatments and Tests none PT-OP-C Subjective Start: 11/13/17 09:44 Freq: Status: Active Protocol: Document 02/12/18 09:07 EA (Rec: 02/12/18 09:44 EA [id number]) OP-PT Subjective Patient Comments Patient Comments Pt reports right thumb is much feeling better at this time and shoulder is very functional. PT-OP-E Functional Tests Start: 11/13/17 09:44 Freq: Status: Active Protocol: Document 01/06/18 13:57 EA (Rec: 01/06/18 14:27 EA [id number]) Functional Tests Apley's Scratch Test Action 1: The subject is instructed to touch the opposite shoulder with his/her hand. This motion checks Glenohumeral adduction, internal rotation , horizontal adduction and scapular protraction Action 2: The subject is instructed to place his/her arm overhead and reach behind the neck to touch his/her upper back. This motion checks Glenohumeral abduction, external rotation and scapular upward rotation and elevation. Action 3: The subject puts his/her hand on the lower back and reaches upward as far as possible. This motion checks glenohumeral adduction, internal rotation and scapular retraction with downward rotation Action 2- Left T2 Action 2- Right T4 Action 3- Left T10 Action 3- Right T6 PT-OP-F Manual Assessment Start: 11/13/17 09:44 Freq: Status: Active Protocol: Document 01/06/18 13:57 EA (Rec: 01/06/18 14:27 EA [id number]) Manual Assessments Soft Tissue Assessment Soft Tissue Mobility Assessment Tight shoulder ER, ABD, IR ( capsular pattern) Hypomobility. Tight PPB/PPL tendon and capsule Joint Mobility Assessment Joint Mobility Assessment Hypomobility of GH joint, and 1st DIP joint PT-OP-J Posture/Palpation/Skin Start: 11/13/17 09:44 Freq: Status: Active Protocol: Document 01/06/18 13:57 EA (Rec: 01/06/18 14:27 EA [id number]) Palpation Assessment Location One Palpation Location Left shoulder, and thumb Palpation Findings Soft Tissue Tightness Muscle Guarding Tenderness PT-OP-K Range of Motion Start: 11/13/17 09:44 Freq: Status: Active Protocol: Document 01/06/18 13:57 EA (Rec: 01/06/18 14:27 EA [id number]) Shoulder Goniometric Range of Motion Shoulder Measured in Degrees Left Active Testing Position Sitting Flexion 155 Extension 160 Abduction 75 Horizontal Abduction 20 External Rotation at 90 degrees 85 Abduction Internal Rotation 35 Shoulder ROM Limitations Shoulder ROM Limitations Soft Tissue Tightness Pain Comments Glenuhumeral capsular restriction ( ERot, ABD, IRot) Thumb Goniometric Range of Motion Thumb Measured in Degrees Right Thumb ROM WFL Yes IP Flexion Active (degrees) 80 IP Extension Active (degrees) 10 PT-OP-L Special Tests Start: 11/13/17 09:44 Freq: Status: Active Protocol: Document 11/13/17 16:14 EA (Rec: 11/13/17 16:43 EA [id number]) Special Tests Shoulder Special Tests Posterior Impingement Test Results - Speed's Biceps Test Results - Empty Can Test Results - Beltrán Raomn Impingement Test Results - Elevation Impingement Test Results - Belly Press Test Results - PT-OP-M Strength Start: 11/13/17 09:44 Freq: Status: Active Protocol: Document 01/06/18 13:57 EA (Rec: 01/06/18 14:27 EA [id number]) Shoulder Strength Shoulder Manual Muscle Testing Left Flexion 4+ Good+ Extension 4- Good- Abduction (C5) 4+ Good+ Adduction 4+ Good+ External Rotation 4 Good Internal Rotation 4- Good- Horizontal Abduction 4 Good Horizontal Adduction 4 Good PT-OP-Q Treatments Start: 11/13/17 09:44 Freq: Status: Active Protocol: Document 02/12/18 09:07 EA (Rec: 02/12/18 09:44 EA [id number]) Therapeutic Exercises Sitting Exercises 3 Sitting Exercise Name Thumb: flexion/extension/ABD/ ADD Equipment Used paraffin/alban do, rubber band Reps/Minutes x15 reps x 2 sets 2 Sitting Exercise Name Shoulder ABD/Flexion Resistance 2-3 lbs Reps/Minutes x 12 reps x 2 sets Manual Therapy Treatment Soft Tissue Mobilization 2 Body Location PIP thumb-R Mobilization Type Cross-Friction Intensity/Depth Deep Body Position Sitting Joint Mobilizations 1 Joint GH/ Right thumb PIP Direction Post/INF Grade III Body Position Supine PT-OP-R Modalities Start: 11/18/17 16:51 Freq: Status: Active Protocol: Document 02/12/18 09:44 EA (Rec: 02/12/18 09:45 EA [id number]) Paraffin Bath Treatment Right Hand Treatment Technique Immersion Bath Number Wax Layers (layers) 6 Duration (minutes) 15 Patient Tolerance Good PT-OP-T Assessment and Plan Start: 11/13/17 09:44 Freq: Status: Active Protocol: Document 02/12/18 09:07 EA (Rec: 02/12/18 09:44 EA [id number]) Physical Therapy Assessment Assessment Summary Assessment Pt tolerated treatment well and slight discomfort only noted during thumb exercises. Pt cont. to progress. Physical Therapy Plan Next Visit Focus/Plan Next Note Type Treatment Note Next Visit Plan Cont. with current plan. Advance as tolerated
--- NOTE | 2018-02-17 10:34 | PT.OTRE ---
Current Diagnoses Pain in left shoulder (02/17/18) Past Medical History (Last Updated 11/09/17 @ 21:37 by Nereida Villagomez) Osteopenia (Chronic) Osteoporosis (Chronic) Skin cancer (Chronic) Vision disorder (Chronic) Chicken pox (Resolved) Measles (Resolved) Mumps (Resolved) Surgical History (Last Updated 11/09/17 @ 21:37 by Nereida Villagomez) Status post Mohs surgery (Resolved) Provider Visit Care Team Role Provider Type DIANE Silva Attending Provider Advanced Entrepreneurship Program Director Primary Care Provider Specialty: [facility] Address: [address] [place] [address], [facility] Email: [email or web address] Physical Therapy Re-Evaluation PT-OP-A Visit Information Start: 11/13/17 09:44 Freq: Status: Active Protocol: Document 02/17/18 09:39 EA (Rec: 02/17/18 09:47 EA [id number]) Out-Patient Physical Therapy Visit Information Visit Information Visit Type Treatment Note Visit Start Time 09:00 Visit Stop Time 09:38 Total Visit Minutes 38 Visit Number 15 PT-OP-B Current Condition Start: 11/13/17 09:44 Freq: Status: Active Protocol: Document 01/06/18 14:27 EA (Rec: 01/06/18 14:29 EA [id number]) Current Condition History of Current Condition History of Current Condition Right thumb pain started on 1st week of nov and aggravated after; states after apinting the house where pain started; states recalled injury since prior to onset. Prior Treatments and Tests none PT-OP-C Subjective Start: 11/13/17 09:44 Freq: Status: Active Protocol: Document 02/17/18 09:39 EA (Rec: 02/17/18 09:47 EA [id number]) OP-PT Subjective Patient Comments Patient Comments Pt reports she has been using paraffin bath at home and is helping her thumb. Patient Reported Progress Improving Patient Questionnaires Quick Dash- Upper Extremity Quick Dash UE Score 15 Quick Dash UE Impairment 1 to 19% Impaired (Score 1-19) PT-OP-E Functional Tests Start: 11/13/17 09:44 Freq: Status: Active Protocol: Document 01/06/18 13:57 EA (Rec: 01/06/18 14:27 EA [id number]) Functional Tests Apley's Scratch Test Action 1: The subject is instructed to touch the opposite shoulder with his/her hand. This motion checks Glenohumeral adduction, internal rotation , horizontal adduction and scapular protraction Action 2: The subject is instructed to place his/her arm overhead and reach behind the neck to touch his/her upper back. This motion checks Glenohumeral abduction, external rotation and scapular upward rotation and elevation. Action 3: The subject puts his/her hand on the lower back and reaches upward as far as possible. This motion checks glenohumeral adduction, internal rotation and scapular retraction with downward rotation Action 2- Left T2 Action 2- Right T4 Action 3- Left T10 Action 3- Right T6 PT-OP-F Manual Assessment Start: 11/13/17 09:44 Freq: Status: Active Protocol: Document 02/17/18 09:39 EA (Rec: 02/17/18 09:47 EA [id number]) Manual Assessments Soft Tissue Assessment Soft Tissue Mobility Assessment Thumb Hypomobility. Tight PPB/ PPL tendon and capsule PT-OP-J Posture/Palpation/Skin Start: 11/13/17 09:44 Freq: Status: Active Protocol: Document 02/17/18 09:39 EA (Rec: 02/17/18 09:47 EA [id number]) Palpation Assessment Location One Palpation Location R thumb Palpation Findings Soft Tissue Tightness Tenderness PT-OP-K Range of Motion Start: 11/13/17 09:44 Freq: Status: Active Protocol: Document 02/17/18 09:39 EA (Rec: 02/17/18 09:47 EA [id number]) Shoulder Goniometric Range of Motion Shoulder Measured in Degrees Left Active Testing Position Sitting Flexion 155 Extension 60 Abduction 160 Horizontal Abduction 20 External Rotation at 90 degrees 85 Abduction Internal Rotation 45 Thumb Goniometric Range of Motion Thumb Measured in Degrees Right Thumb ROM WFL Yes IP Flexion Active (degrees) 90 IP Extension Active (degrees) 20 PT-OP-L Special Tests Start: 11/13/17 09:44 Freq: Status: Active Protocol: Document 11/13/17 16:14 EA (Rec: 11/13/17 16:43 EA [id number]) Special Tests Shoulder Special Tests Posterior Impingement Test Results - Speed's Biceps Test Results - Empty Can Test Results - Beltrán Ramon Impingement Test Results - Elevation Impingement Test Results - Belly Press Test Results - PT-OP-M Strength Start: 11/13/17 09:44 Freq: Status: Active Protocol: Document 01/06/18 13:57 EA (Rec: 01/06/18 14:27 EA [id number]) Shoulder Strength Shoulder Manual Muscle Testing Left Flexion 4+ Good+ Extension 4- Good- Abduction (C5) 4+ Good+ Adduction 4+ Good+ External Rotation 4 Good Internal Rotation 4- Good- Horizontal Abduction 4 Good Horizontal Adduction 4 Good PT-OP-Q Treatments Start: 11/13/17 09:44 Freq: Status: Active Protocol: Document 02/17/18 09:39 EA (Rec: 02/17/18 09:47 EA [id number]) Manual Therapy Treatment Soft Tissue Mobilization 2 Body Location PIP thumb-R Mobilization Type Cross-Friction Intensity/Depth Deep Body Position Sitting 1 Body Location left shoulder Mobilization Type Sustained Pressure Joint Mobilizations 1 Joint GH/ Right thumb PIP Direction Post/INF Grade III Body Position Supine PT-OP-R Modalities Start: 11/18/17 16:51 Freq: Status: Active Protocol: Document 02/17/18 09:39 EA (Rec: 02/17/18 09:47 EA [id number]) Paraffin Bath Treatment Right Hand Treatment Technique Immersion Bath Number Wax Layers (layers) 6 Duration (minutes) 15 Patient Tolerance Good PT-OP-T Assessment and Plan Start: 11/13/17 09:44 Freq: Status: Active Protocol: Document 02/17/18 09:39 EA (Rec: 02/17/18 09:47 EA [id number]) Physical Therapy Assessment Impairments Impairments Functional Activities Pain ROM Strength Goals Five Impairment Right thum PS with activity of 8/10 Detention Goal (LTG) Patient will have 2/10 PS to right thum to improve functional use. LTG Duration 4 wks (Progressing well) Four Impairment Impaired thumb ROM Detention Goal (LTG) Patient will extend thimb PIP joint to normal range. LTG Duration 4 wks (Improving) Three Impairment QuickDash impairment scale of 20-30% impaired Detention Goal (LTG) Patient will have QuickDash impairement scale of 0-10% impaired LTG Duration 4 wks (Good progress) Two Impairment Impaired left shoulder strength Milk Processing Worker Goal (LTG) Patient will increase left shoulder strength by 1/2 grade to improve shoulder function or overhead and reaching behind movement LTG Duration 4 wks (Excellent progress) One Impairment Impaired L shoulder ROM Milk Processing Worker Goal (LTG) Patient will increase shoulder ROM to functional range (ER, ABD, IR) to improve shoulder functional mobility. LTG Duration Goal reached Progress Towards Goals Progress Towards Goals Progressing Toward Goals Assessment Summary Assessment Pt continued to exhibit functional L shoulder and right thumb improvement with less discomfort with improved ROM. Patient at this time will benefit to once a week of session focusing to right thumb functional strength, joint mobility and decrease 1st digit biomechanical mal alignment. Overall patient has excellent progress. Physical Therapy Plan Frequency and Duration Frequency of Treatment 1x/Week Duration of Treatment 3 wks Plan of Care Start Date 02/17/18 Plan of Care End Date 03/10/18 Therapeutic Interventions Therapeutic Interventions Home Exercise Program Joint Mobilizations Manual Therapy Patient/Caregiver Education Self-Care/Home Management Soft Tissue Mobilization Therapeutic Exercises Modalities Cold Pack/Ice Massage Electric Stimulation Hot Packs Paraffin Bath Ultrasound Next Visit Focus/Plan Next Note Type Treatment Note Next Visit Plan Possible discharge in the next 2 visit. Provide new HEP and preventative measures.
--- NOTE | 2018-02-17 10:35 | PT.OPPOC ---
Current Diagnoses Pain in left shoulder (02/17/18) Provider Visit Care Team Role Provider Type DIANE Silva Attending Provider Advanced Talent Acquisition Project Manager Primary Care Provider Specialty: Family Practice Address: [address] [place] [address], [id number] Email: [email or web address] Plan Of Care PT-OP-T Assessment and Plan Start: 11/13/17 09:44 Freq: Status: Active Protocol: Document 02/17/18 09:39 EA (Rec: 02/17/18 09:47 EA [id number]) Physical Therapy Assessment Impairments Impairments Functional Activities Pain ROM Strength Goals Five Impairment Right thum PS with activity of 8/10 Halfway Goal (LTG) Patient will have 2/10 PS to right thum to improve functional use. LTG Duration 4 wks (Progressing well) Four Impairment Impaired thumb ROM Special Education Resource Room Teacher Goal (LTG) Patient will extend thimb PIP joint to normal range. LTG Duration 4 wks (Improving) Three Impairment QuickDash impairment scale of 20-30% impaired Halfway Goal (LTG) Patient will have QuickDash impairement scale of 0-10% impaired LTG Duration 4 wks (Good progress) Two Impairment Impaired left shoulder strength Special Education Resource Room Teacher Goal (LTG) Patient will increase left shoulder strength by 1/2 grade to improve shoulder function or overhead and reaching behind movement LTG Duration 4 wks (Excellent progress) One Impairment Impaired L shoulder ROM Special Education Resource Room Teacher Goal (LTG) Patient will increase shoulder ROM to functional range (ER, ABD, IR) to improve shoulder functional mobility. LTG Duration Goal reached Progress Towards Goals Progress Towards Goals Progressing Toward Goals Assessment Summary Assessment Pt continued to exhibit functional L shoulder and right thumb improvement with less discomfort with improved ROM. Patient at this time will benefit to once a week of session focusing to right thumb functional strength, joint mobility and decrease 1st digit biomechanical mal alignment. Overall patient has excellent progress. Physical Therapy Plan Frequency and Duration Frequency of Treatment 1x/Week Duration of Treatment 3 wks Plan of Care Start Date 02/17/18 Plan of Care End Date 03/10/18 Therapeutic Interventions Therapeutic Interventions Home Exercise Program Joint Mobilizations Manual Therapy Patient/Caregiver Education Self-Care/Home Management Soft Tissue Mobilization Therapeutic Exercises Modalities Cold Pack/Ice Massage Electric Stimulation Hot Packs Paraffin Bath Ultrasound Next Visit Focus/Plan Next Note Type Treatment Note Next Visit Plan Possible discharge in the next 2 visit. Provide new HEP and preventative measures. Plan of Care Dates Plan of Care Start Date 02/17/18 Plan of Care End Date 03/10/18 Please Sign and Return: I have reviewed this Plan of Care and certify that the skilled therapy services above are required to meet the patient?s needs. Physician Signature Date Printed Name and Credentials Clinical Instructor Signature Printed Name and Credentials
--- NOTE | 2018-02-26 12:54 | PT.OTN ---
Current Diagnoses Pain in left shoulder (02/26/18) Physical Therapy Treatment Note PT-OP-A Visit Information Start: 11/13/17 09:44 Freq: Status: Active Protocol: Document 02/26/18 09:39 EA (Rec: 02/26/18 09:46 EA [id number]) Out-Patient Physical Therapy Visit Information Visit Information Visit Type Treatment Note Visit Start Time 09:00 Visit Stop Time 09:38 Total Visit Minutes 38 Visit Number 16 PT-OP-B Current Condition Start: 11/13/17 09:44 Freq: Status: Active Protocol: Document 01/06/18 14:27 EA (Rec: 01/06/18 14:29 EA [id number]) Current Condition History of Current Condition History of Current Condition Right thumb pain started on 1st week of nov and aggravated after; states after apinting the house where pain started; states recalled injury since prior to onset. Prior Treatments and Tests none PT-OP-C Subjective Start: 11/13/17 09:44 Freq: Status: Active Protocol: Document 02/26/18 09:39 EA (Rec: 02/26/18 09:46 EA [id number]) OP-PT Subjective Patient Comments Patient Comments Pt reports difficult to pick disches from the drawer using right thumb and index finger due to pain; states complaint with HEP. Patient reports she improving but feels will improve more. Patient Reported Progress Improving PT-OP-E Functional Tests Start: 11/13/17 09:44 Freq: Status: Active Protocol: Document 01/06/18 13:57 EA (Rec: 01/06/18 14:27 EA [id number]) Functional Tests Apley's Scratch Test Action 1: The subject is instructed to touch the opposite shoulder with his/her hand. This motion checks Glenohumeral adduction, internal rotation , horizontal adduction and scapular protraction Action 2: The subject is instructed to place his/her arm overhead and reach behind the neck to touch his/her upper back. This motion checks Glenohumeral abduction, external rotation and scapular upward rotation and elevation. Action 3: The subject puts his/her hand on the lower back and reaches upward as far as possible. This motion checks glenohumeral adduction, internal rotation and scapular retraction with downward rotation Action 2- Left T2 Action 2- Right T4 Action 3- Left T10 Action 3- Right T6 PT-OP-F Manual Assessment Start: 11/13/17 09:44 Freq: Status: Active Protocol: Document 02/17/18 09:39 EA (Rec: 02/17/18 09:47 EA [id number]) Manual Assessments Soft Tissue Assessment Soft Tissue Mobility Assessment Thumb Hypomobility. Tight PPB/ PPL tendon and capsule PT-OP-J Posture/Palpation/Skin Start: 11/13/17 09:44 Freq: Status: Active Protocol: Document 02/17/18 09:39 EA (Rec: 02/17/18 09:47 EA [id number]) Palpation Assessment Location One Palpation Location R thumb Palpation Findings Soft Tissue Tightness Tenderness PT-OP-K Range of Motion Start: 11/13/17 09:44 Freq: Status: Active Protocol: Document 02/17/18 09:39 EA (Rec: 02/17/18 09:47 EA [id number]) Shoulder Goniometric Range of Motion Shoulder Measured in Degrees Left Active Testing Position Sitting Flexion 155 Extension 60 Abduction 160 Horizontal Abduction 20 External Rotation at 90 degrees 85 Abduction Internal Rotation 45 Thumb Goniometric Range of Motion Thumb Measured in Degrees Right Thumb ROM WFL Yes IP Flexion Active (degrees) 90 IP Extension Active (degrees) 20 PT-OP-L Special Tests Start: 11/13/17 09:44 Freq: Status: Active Protocol: Document 11/13/17 16:14 EA (Rec: 11/13/17 16:43 EA [id number]) Special Tests Shoulder Special Tests Posterior Impingement Test Results - Speed's Biceps Test Results - Empty Can Test Results - Beltrán Ramon Impingement Test Results - Elevation Impingement Test Results - Belly Press Test Results - PT-OP-M Strength Start: 11/13/17 09:44 Freq: Status: Active Protocol: Document 01/06/18 13:57 EA (Rec: 01/06/18 14:27 EA [id number]) Shoulder Strength Shoulder Manual Muscle Testing Left Flexion 4+ Good+ Extension 4- Good- Abduction (C5) 4+ Good+ Adduction 4+ Good+ External Rotation 4 Good Internal Rotation 4- Good- Horizontal Abduction 4 Good Horizontal Adduction 4 Good PT-OP-Q Treatments Start: 11/13/17 09:44 Freq: Status: Active Protocol: Document 02/26/18 09:39 EA (Rec: 02/26/18 09:46 EA [id number]) Therapeutic Exercises Sitting Exercises 3 Sitting Exercise Name Thumb: flexion/extension/ABD/ ADD Equipment Used paraffin/alban do, rubber band Reps/Minutes x15 reps x 2 sets 2 Sitting Exercise Name Shoulder ABD/Flexion Resistance 2-3 lbs Reps/Minutes x 12 reps x 2 sets 1 Sitting Exercise Name Thum /index prehension radiation physicist Side right Reps/Minutes x 10 reps Other Exercises 1 Other Exercise Name D1, D2 F/E Resistance 2 LLBS wrist weights Reps/Minutes x 10 reps x 2 sets Comments Home comp Manual Therapy Treatment Soft Tissue Mobilization 2 Body Location PIP thumb-R Mobilization Type Cross-Friction Intensity/Depth Deep Body Position Sitting Joint Mobilizations 1 Joint GH/ Right thumb DIP/PIP Direction Post/INF Grade III Body Position Sitting PT-OP-R Modalities Start: 11/18/17 16:51 Freq: Status: Active Protocol: Document 02/26/18 09:39 EA (Rec: 02/26/18 09:46 EA [id number]) Paraffin Bath Treatment Right Hand Treatment Technique Immersion Bath Number Wax Layers (layers) 6 Duration (minutes) 15 Patient Tolerance Good PT-OP-T Assessment and Plan Start: 11/13/17 09:44 Freq: Status: Active Protocol: Document 02/26/18 09:39 EA (Rec: 02/26/18 09:46 EA [id number]) Physical Therapy Assessment Assessment Summary Assessment Pt tolerated treatment well; increased thumb joint play noted with decreased symptoms during therex. Physical Therapy Plan Next Visit Focus/Plan Next Note Type Treatment Note Next Visit Plan Advance as tolerated.
--- NOTE | 2018-03-05 16:41 | PT.OTN ---
Current Diagnoses Pain in left shoulder (03/05/18) Physical Therapy Treatment Note PT-OP-A Visit Information Start: 11/13/17 09:44 Freq: Status: Active Protocol: Document 03/05/18 09:47 EA (Rec: 03/05/18 09:51 EA [id number]) Out-Patient Physical Therapy Visit Information Visit Information Visit Type Treatment Note Visit Note Discharge to this date PT-OP-B Current Condition Start: 11/13/17 09:44 Freq: Status: Active Protocol: Document 01/06/18 14:27 EA (Rec: 01/06/18 14:29 EA [id number]) Current Condition History of Current Condition History of Current Condition Right thumb pain started on 1st week of nov and aggravated after; states after apinting the house where pain started; states recalled injury since prior to onset. Prior Treatments and Tests none PT-OP-C Subjective Start: 11/13/17 09:44 Freq: Status: Active Protocol: Document 03/05/18 09:47 EA (Rec: 03/05/18 09:51 EA [id number]) OP-PT Subjective Patient Comments Patient Comments Patient reports shoulder has no problem at this time; states a slight discomfort with thumb but is function with activity modification. Pt reports she ok to discharge at this time. Patient Reported Progress Improving PT-OP-E Functional Tests Start: 11/13/17 09:44 Freq: Status: Active Protocol: Document 01/06/18 13:57 EA (Rec: 01/06/18 14:27 EA [id number]) Functional Tests Apley's Scratch Test Action 1: The subject is instructed to touch the opposite shoulder with his/her hand. This motion checks Glenohumeral adduction, internal rotation , horizontal adduction and scapular protraction Action 2: The subject is instructed to place his/her arm overhead and reach behind the neck to touch his/her upper back. This motion checks Glenohumeral abduction, external rotation and scapular upward rotation and elevation. Action 3: The subject puts his/her hand on the lower back and reaches upward as far as possible. This motion checks glenohumeral adduction, internal rotation and scapular retraction with downward rotation Action 2- Left T2 Action 2- Right T4 Action 3- Left T10 Action 3- Right T6 PT-OP-F Manual Assessment Start: 11/13/17 09:44 Freq: Status: Active Protocol: Document 02/17/18 09:39 EA (Rec: 02/17/18 09:47 EA [id number]) Manual Assessments Soft Tissue Assessment Soft Tissue Mobility Assessment Thumb Hypomobility. Tight PPB/ PPL tendon and capsule PT-OP-J Posture/Palpation/Skin Start: 11/13/17 09:44 Freq: Status: Active Protocol: Document 02/17/18 09:39 EA (Rec: 02/17/18 09:47 EA [id number]) Palpation Assessment Location One Palpation Location R thumb Palpation Findings Soft Tissue Tightness Tenderness PT-OP-K Range of Motion Start: 11/13/17 09:44 Freq: Status: Active Protocol: Document 02/17/18 09:39 EA (Rec: 02/17/18 09:47 EA [id number]) Shoulder Goniometric Range of Motion Shoulder Measured in Degrees Left Active Testing Position Sitting Flexion 155 Extension 60 Abduction 160 Horizontal Abduction 20 External Rotation at 90 degrees 85 Abduction Internal Rotation 45 Thumb Goniometric Range of Motion Thumb Measured in Degrees Right Thumb ROM WFL Yes IP Flexion Active (degrees) 90 IP Extension Active (degrees) 20 PT-OP-L Special Tests Start: 11/13/17 09:44 Freq: Status: Active Protocol: Document 11/13/17 16:14 EA (Rec: 11/13/17 16:43 EA [id number]) Special Tests Shoulder Special Tests Posterior Impingement Test Results - Speed's Biceps Test Results - Empty Can Test Results - Beltrán Ramon Impingement Test Results - Elevation Impingement Test Results - Belly Press Test Results - PT-OP-M Strength Start: 11/13/17 09:44 Freq: Status: Active Protocol: Document 01/06/18 13:57 EA (Rec: 01/06/18 14:27 EA [id number]) Shoulder Strength Shoulder Manual Muscle Testing Left Flexion 4+ Good+ Extension 4- Good- Abduction (C5) 4+ Good+ Adduction 4+ Good+ External Rotation 4 Good Internal Rotation 4- Good- Horizontal Abduction 4 Good Horizontal Adduction 4 Good PT-OP-Q Treatments Start: 11/13/17 09:44 Freq: Status: Active Protocol: Document 03/05/18 10:27 EA (Rec: 03/05/18 10:31 EA [id number]) Therapeutic Exercises Sitting Exercises 3 Sitting Exercise Name Thumb: flexion/extension/ABD/ ADD Equipment Used paraffin/alban do, rubber band Reps/Minutes x15 reps x 2 sets Comments HEP comp 2 Sitting Exercise Name Shoulder ABD/Flexion Resistance 2-3 lbs Reps/Minutes x 12 reps x 2 sets Comments HEP comp 1 Sitting Exercise Name Thum /index prehension pyridine operator Side right Reps/Minutes x 10 reps Comments HEP com Other Exercises 1 Other Exercise Name D1, D2 F/E Resistance 2 LLBS wrist weights Reps/Minutes x 10 reps x 2 sets Comments Home comp Manual Therapy Treatment Soft Tissue Mobilization 2 Body Location PIP thumb-R Mobilization Type Cross-Friction Intensity/Depth Deep Body Position Sitting Joint Mobilizations 1 Joint Right thumb DIP/PIP Direction Post/INF Grade III Body Position Sitting Self-Care/Home Management Treatment Education Patient Education Home Exercise Program Joint Protection Pain Management PT-OP-R Modalities Start: 11/18/17 16:51 Freq: Status: Active Protocol: Document 02/26/18 09:39 EA (Rec: 02/26/18 09:46 EA [id number]) Paraffin Bath Treatment Right Hand Treatment Technique Immersion Bath Number Wax Layers (layers) 6 Duration (minutes) 15 Patient Tolerance Good PT-OP-T Assessment and Plan Start: 11/13/17 09:44 Freq: Status: Active Protocol: Document 03/05/18 10:27 EA (Rec: 03/05/18 10:31 EA [id number]) Physical Therapy Assessment Goals Five Impairment Right thum PS with activity of 8/10 Writer Producer Goal (LTG) Patient will have 2/10 PS to right thum to improve functional use. LTG Duration Goal reached Four Impairment Impaired thumb ROM Writer Producer Goal (LTG) Patient will extend thimb PIP joint to normal range. LTG Duration Goal met Three Impairment QuickDash impairment scale of 20-30% impaired Fdc Goal (LTG) Patient will have QuickDash impairement scale of 0-10% impaired Two Impairment Impaired left shoulder strength Fdc Goal (LTG) Patient will increase left shoulder strength by 1/2 grade to improve shoulder function or overhead and reaching behind movement LTG Duration Goal met One Impairment Impaired L shoulder ROM Writer Producer Goal (LTG) Patient will increase shoulder ROM to functional range (ER, ABD, IR) to improve shoulder functional mobility. LTG Duration Goal reached Assessment Summary Assessment Patient is discharge today upon request. Patient has near full recovery to left shoulder and near full recovery to right thumb upon discharge. Overall patient has improved functional shoulder and hand mobility. Physical Therapy Plan Discharge Physical Therapy Discharge Reasons Patient Request Discharge Comments 80% goal met
== END 2018-03-11 10:05 ==
LOC: PHYS 09:00
PROVIDERS: PCP Internal Medicine; Visit Provider Internal Medicine
DX: M25.512 Pain in left shoulder (principal)
CPT/HCPCS: 97014; 97018; 97110; 97140; 97161; 97535; G0283

== ENCOUNTER → 2018-07-23 10:45 | Outpatient (CLI) | payer MEDICARE, OTHER, SELFPAY ==
--- NOTE | 2018-07-23 | DI.RAD.S_ITS ---
PROCEDURE: XR FINGER RT MIN 2V INDICATIONS: RIGHT THUMB PAIN TECHNIQUE: AP hand, 2 views of the right finger(s) acquired. COMPARISON: None. FINDINGS: Bones: No fractures or dislocations. No suspicious bony lesions. Soft tissues: Punctate calcific densities projecting at the thumb interphalangeal joint. No definite donor site. IMPRESSION: Punctate densities projecting at the thumb IP joint at the dorsal aspect. These could be small fracture fragments although no discrete donor site is identified. Chronic loose bodies or dystrophic calcifications in the differential. Elsewhere, no fracture. Dictated by: Jamie Lane M.D. on 07/23/2018 at 12:21 Approved by: Jamie Lane M.D. on 07/23/2018 at 12:22
== END ==
PROVIDERS: PCP Internal Medicine; Visit Provider Internal Medicine
DX: M79.644 Pain in right finger(s) (principal)
CPT/HCPCS: 73140

== ENCOUNTER → 2019-12-17 14:40 | Outpatient (CLI) | payer MEDICARE, OTHER, SELFPAY | PROVIDERS: PCP Internal Medicine; Referring Provider Internal Medicine; Visit Provider Internal Medicine | DX: M81.0 Age-related osteoporosis without current pathological fracture (principal); Z78.0 Asymptomatic menopausal state; Z82.62 Family history of osteoporosis | CPT/HCPCS: 77080 ==

== ENCOUNTER → 2019-12-30 13:03 | Outpatient (CLI) | payer MEDICARE, OTHER, SELFPAY ==
--- NOTE | 2019-12-30 | DI.MRI.S_ITS ---
PROCEDURE: MR SHOULDER RT WO CON INDICATIONS: right shoulder derangement TECHNIQUE: Noncontrast oblique coronal T2 fast spin echo with fat saturation, oblique sagittal T1 spin echo and T2 fast spin echo with fat saturation, axial T1 spin echo and T2 fast spin echo with fat saturation through the shoulder. COMPARISON: None. FINDINGS: Image quality: Excellent. Rotator cuff: Tendinosis and moderate grade articular and bursal surface partial thickness tear involving distal supraspinatus and infraspinatus are seen at their insertions on greater tuberosity extending to musculotendinous junction. Full-thickness rupture involving posterior fibers of distal supraspinatus is seen at its insertion on the humeral head with up to 2.5 centimeter medial retraction of torn tendon fibers to the level of acromion. Distal subscapularis tendinosis and low-grade intrasubstance partial-thickness tear is seen. Sagittal images demonstrate mild supraspinatus muscle atrophy. Bones and bursae: No bone marrow contusions or fractures. Moderate acromioclavicular joint osteoarthritic changes are noted with downward osteophyte formation depressing the musculotendinous junction of supraspinatus. Moderate amount of subacromial subdeltoid bursal fluid is seen. No gross loose body. Capsule and soft tissues: In the absence of intra-articular contrast, the labrum and glenohumeral ligaments appear intact. The long head of the biceps tendon demonstrates normal location and morphology. The rotator interval appears normal, without fibrosis. The coracohumeral ligament is normal in thickness. IMPRESSION: 1. Tendinosis and moderate grade articular and bursal surface partial thickness tear involving distal supraspinatus and infraspinatus with focal full-thickness perforation involving posterior fibers of distal supraspinatus and up to 2.5 centimeter medial retraction of torn tendon fibers to the level of acromion. Distal subscapularis tendinosis and low-grade intrasubstance partial-thickness tear. Mild supraspinatus muscle atrophy. 2. Moderate acromioclavicular joint osteoarthritis. Moderate amount of joint effusion and subacromial subdeltoid bursal fluid. 3. No gross focal labral tear. Dictated by: Rahul Chapa M.D. on 12/30/2019 at 15:38 Approved by: Rahul Chapa M.D. on 12/30/2019 at 15:45
== END ==
PROVIDERS: PCP Internal Medicine; Referring Provider Orthopaedic Surgery; Visit Provider Orthopaedic Surgery
DX: M24.811 Other specific joint derangements of right shoulder, not elsewhere classified (principal); M75.111 Incomplete rotator cuff tear or rupture of right shoulder, not specified as traumatic; M19.011 Primary osteoarthritis, right shoulder; M25.411 Effusion, right shoulder
CPT/HCPCS: 73221

== ENCOUNTER → 2020-02-12 08:14 | Outpatient (CLI) | payer MEDICARE, OTHER, SELFPAY ==
--- NOTE | 2020-02-12 | DI.MG.S_ITS ---
BILATERAL DIGITAL SCREENING MAMMOGRAM 3D/2D WITH CAD: 02/12/2020 CLINICAL: Routine screening. Family history of breast cancer. Comparison is made to exams dated: 05/20/2013 mammogram, 05/23/2015 mammogram, and 06/04/2017 mammogram - outside location. The tissue of both breasts is heterogeneously dense. This may lower the sensitivity of mammography. Current study was also evaluated with a Computer Aided Detection (CAD) system. There are grouped calcifications in the right breast at 7 o'clock posterior depth. No other significant masses, calcifications, or other findings are seen in either breast. IMPRESSION: INCOMPLETE: NEEDS ADDITIONAL IMAGING EVALUATION The grouped calcifications in the right breast are indeterminate. Spot magnification views are recommended. This exam was interpreted at Station ID: [id number]. NOTE: For mammograms, a report in lay terms will be sent to the patient. Approximately 15% of breast malignancies will not be visualized mammographically. In the management of a palpable breast mass, a negative mammogram must not discourage biopsy of a clinically suspicious lesion. Electronically Signed By: Paola ren/:02/14/2020 17:40:15 letter sent: Additional Imaging Needed ACR BI-RADS Category 0: Incomplete 3340F
== END ==
PROVIDERS: PCP Internal Medicine; Referring Provider Internal Medicine; Visit Provider Internal Medicine
DX: Z12.31 Encounter for screening mammogram for malignant neoplasm of breast (principal); Z80.3 Family history of malignant neoplasm of breast
CPT/HCPCS: 77063; 77067

== ENCOUNTER → 2021-06-08 10:17 | Outpatient (CLI) | payer MEDICARE, OTHER, SELFPAY ==
--- NOTE | 2021-06-08 | DI.MG.S_ITS ---
BILATERAL DIGITAL SCREENING MAMMOGRAM 3D/2D WITH CAD: 06/08/2021 CLINICAL: Routine screening. Family history of breast cancer. Comparison is made to exams dated: 02/28/2020 [facility]ogram - [facility], 02/12/2020 mammogram - [facility], and 06/04/2017 mammogram - outside location. The tissue of both breasts is heterogeneously dense. This may lower the sensitivity of mammography. Current study was also evaluated with a Computer Aided Detection (CAD) system. No significant masses, calcifications, or other findings are seen in either breast. There has been no significant interval change. IMPRESSION: NEGATIVE There is no mammographic evidence of malignancy. A 1 year screening mammogram is recommended. This exam was interpreted at Station ID: [id number]. NOTE: For mammograms, a report in lay terms will be sent to the patient. Approximately 15% of breast malignancies will not be visualized mammographically. In the management of a palpable breast mass, a negative mammogram must not discourage biopsy of a clinically suspicious lesion. Electronically Signed By: Bari Sam M.D., jr/mia:06/08/2021 10:47:33 letter sent: Normal Exam ACR BI-RADS Category 1: Negative 3341F
== END ==
PROVIDERS: PCP Internal Medicine; Referring Provider Internal Medicine; Visit Provider Internal Medicine
DX: Z12.31 Encounter for screening mammogram for malignant neoplasm of breast (principal); M81.0 Age-related osteoporosis without current pathological fracture; Z80.3 Family history of malignant neoplasm of breast
CPT/HCPCS: 77063; 77067; 77080

== ENCOUNTER → 2022-01-08 15:47 | Outpatient (CLI) | payer MEDICARE, OTHER, SELFPAY ==
--- NOTE | 2022-01-08 15:50 | DI.RAD.S_ITS ---
PROCEDURE: XR RIBS LT MIN 3V W CXR1V INDICATIONS: Fall TECHNIQUE: 3 views of the right ribs were acquired, along with a single view chest. COMPARISON: None. FINDINGS: Surgical changes and devices: Metallic coil type radiodensities projected over the left epigastrium.. Bones and chest wall: No fractures or dislocations. No suspicious bony lesions. Overlying soft tissues appear unremarkable. Lungs and pleura: No pleural effusions or pneumothorax. Lungs appear clear. Mediastinum: Mediastinal contours appear normal. Heart size is normal. IMPRESSION: No displaced right rib fractures. Dictated by: Cristobal Saavedra [facility] Interpreted: Misty Yanes MD on 01/08/2022 at 16:22 Transcribed by: ALISSA on 01/08/2022 at 16:23 Approved by: Misty Yanes M.D. on 01/08/2022 at 17:18
== END ==
PROVIDERS: PCP Internal Medicine; Referring Provider Internal Medicine; Visit Provider Internal Medicine
DX: S22.42XS Multiple fractures of ribs, left side, sequela (principal)
CPT/HCPCS: 71101

== ENCOUNTER → 2022-07-25 14:38 | Outpatient (CLI) | payer MEDICARE, OTHER, SELFPAY ==
--- NOTE | 2022-07-25 | DI.RAD.S_ITS ---
PROCEDURE: XR LUMBAR SPINE 2-3V INDICATIONS: BACK PAIN TECHNIQUE: 3 views of the lumbar spine were acquired. COMPARISON: None. FINDINGS: Bones: 5 [id number]-aib-imuaack vertebrae are present. Mild levo curvature centered at the L2-L3 level.. Moderate L1 compression fracture with vertebral body height loss estimated roughly 57%. No retropulsed fracture fragments. Mild multilevel disc space narrowing with endplate sclerosis and spurring. Mild facet joint arthropathy L4-L5 and L5-S1.. No suspicious bony lesions. Soft tissues: Overlying bowel gas pattern is normal. No suspicious soft tissue calcifications. Multilevel lumbar spine spondylosis. Embolization coils projected over the left flank. IMPRESSION: 1. Moderate L1 compression fracture of indeterminate age. If indicated, MRI could be performed for further characterization 2. Multilevel lumbar spine spondylosis. Dictated by: Cristobal Saavedra [facility] Interpreted: Rahul Chapa MD on 07/25/2022 at 14:58 Transcribed by: BENSON on 07/25/2022 at 15:00 Approved by: Rahul Chapa M.D. on 07/25/2022 at 17:02
== END ==
PROVIDERS: PCP Internal Medicine; Referring Provider Registered Nurse; Visit Provider Registered Nurse
DX: M48.56XA Collapsed vertebra, not elsewhere classified, lumbar region, initial encounter for fracture (principal); M47.816 Spondylosis without myelopathy or radiculopathy, lumbar region; M54.50 Low back pain, unspecified; M81.0 Age-related osteoporosis without current pathological fracture; Z91.81 History of falling
CPT/HCPCS: 72100

== ENCOUNTER → 2022-08-09 07:44 | Outpatient (CLI) | payer MEDICARE, OTHER, SELFPAY ==
--- NOTE | 2022-08-09 | DI.MRI.S_ITS ---
PROCEDURE: MR LUMBAR SPINE WO CON INDICATIONS: Wedge compression fracture of first lumbar vertebra, initial TECHNIQUE: Noncontrast sagittal T1 spin echo and T2 fast echo, sagittal STIR, and T2 fast spin echo through the lumbar spine. In cases with scoliosis, additional coronal T2 fast spin echo may be performed. COMPARISON: [facility], CR, XR LUMBAR SPINE 2-3V, 07/25/2022, 14:39. FINDINGS: Image quality: Excellent. Alignment and Curvature: There is normal bony alignment. Bone Marrow: Marrow is of normal overall signal. No acute vertebral body compression fractures. Old 58% L1 compression deformity is present. There is slight angulation of the posterior aspect of the superior endplate. Spinal Cord: Conus medullaris terminates at the L1-2 level. Visualized cord demonstrates normal signal and size. Paraspinous Soft Tissues: No paravertebral masses. Discs: Mild scattered disc desiccation throughout the lumbar spine. T12-L1: Mild disc bulge with effacement of the anterior thecal sac secondary to disc bulges well as retropulsion of posterior aspect of the superior endplate of L1. No foraminal narrowing. L1-L2: Mild disc bulge without spinal stenosis. Minimal left foraminal narrowing with facet hypertrophy. L2-L3: Minimal disc bulge without spinal stenosis. Minimal to mild left foraminal narrowing with facet and ligamentum flavum hypertrophy. L3-L4: Mild disc bulge without spinal stenosis. Minimal left foraminal narrowing with facet and ligamentum flavum hypertrophy. Minimal epidural lipomatosis. L4-L5: Mild disc bulge without spinal stenosis. Minimal left foraminal narrowing with facet and ligamentum flavum hypertrophy. L5-S1: Minimal disc bulge without spinal stenosis. Mild bilateral foraminal narrowing with facet hypertrophy. IMPRESSION: Old L1 compression deformity. Multilevel foraminal narrowing secondary to facet arthropathy. Dictated by: Misty Yanes M.D. on 08/09/2022 at 14:38 Approved by: Misty Yanes M.D. on 08/09/2022 at 14:46
== END ==
PROVIDERS: PCP Internal Medicine; Referring Provider Internal Medicine; Visit Provider Internal Medicine
DX: S32.010A Wedge compression fracture of first lumbar vertebra, initial encounter for closed fracture (principal); M81.0 Age-related osteoporosis without current pathological fracture; Z91.81 History of falling; M48.061 Spinal stenosis, lumbar region without neurogenic claudication
CPT/HCPCS: 72148

== ENCOUNTER → 2023-06-26 10:16 | Outpatient (CLI) | payer MEDICARE, OTHER, SELFPAY ==
--- NOTE | 2023-06-26 10:18 | DI.RAD.S_ITS ---
Bone Density Report Name: MIRZA HEIN Age: 73 Sex: Female Ethnicity: White Date of : 1950 Indication: postmenopausal osteoporosis; monitoring treatment; Referring Provider: ROBERTO BEAVERS Study: Bone densitometry was performed. Exam Date: June 26, 2023 Accession number: [id number] Bone Density: Region BMD T-score Z-score Classification AP Spine(L2, L3, L4) 0.782 -2.7 -0.5 Osteoporosis Femoral Neck (Left) 0.679 -1.5 0.3 Osteopenia Total Hip (Left) 0.811 -1.1 0.5 Osteopenia Femoral Neck (Right) 0.634 -1.9 -0.1 Osteopenia Total Hip (Right) 0.762 -1.5 0.1 Osteopenia Total Hip Mean 0.787 -1.3 0.3 Osteopenia World Health Organization criteria for BMD impression classify patients as: Normal (T-score at or above -1.0), Osteopenia (T-score between -1.0 and -2.5), or Osteoporosis (T-score at or below -2.5). 10-year Fracture Risk: FRAX not reported because: Some T-score for Spine Total or Hip Total or Femoral Neck at or below -2.5 Treated for osteoporosis Previous Exams: -- Region Exam Age BMD T-score BMD Change BMD Change Date g/cm2 vs Baseline vs Previous -- AP Spine (L2-L4) 06/26/2023 73 0.782 -2.7 0.006 (0.7%)# -0.025 (-3.1%)# 06/08/2021 71 0.807 -2.5 0.031 (4.0%)# 0.031 (4.0%)12/17/2019 69 0.776 -2.8 Total Hip(Left) 06/26/2023 73 0.811 -1.1 0.020 (2.5%)# -0.013 (-1.6%)# 06/08/2021 71 0.824 -1.0 0.033 (4.2%)# 0.033 (4.2%)# 12/17/2019 69 0.791 -1.2 Total Hip(Right) 06/26/2023 73 0.762 -1.5 -0.018 (-2.3%)# -0.029 (-3.7%)# 06/08/2021 71 0.791 -1.2 0.011 (1.4%)# 0.011 (1.4%)12/17/2019 69 0.780 -1.3 -- *Denotes significance at 95% confidence level, LSC for AP Spine = 0.022 g/cm2, LSC for Total Hip = 0.027 g/cm2 # Denotes dissimilar scan types or analysis methods Impression: The patient has osteoporosis, based on the Total Spine T-score. No significant bone loss was observed. Discussion: PATIENT UNDER TREATMENT WITH NO SIGNIFICANT BMD LOSS SINCE LAST EXAM. In an untreated patient, BMD typically declines with age. A lack of decline or gain is usually a sign that treatment is efficacious and fracture risk is reduced. It is important to ask patients whether they are taking their medications and to encourage continued and appropriate compliance with their osteoporosis therapies to reduce fracture risk. It is also important to review their risk factors and encourage appropriate calcium and vitamin D intakes, exercise, fall prevention and other lifestyle measures. Follow-Up: Consider a repeat BMD and Vertebral Fracture Assessment (VFA) exam in 2 years or sooner if medically necessary, to reassess this patient's status. Reported by: MAIRA HESTER M.D. on 06/26/2023 10:37:00 AM.
== END ==
LOC: RAD 10:17
PROVIDERS: PCP Internal Medicine; Referring Provider Internal Medicine; Visit Provider Internal Medicine
DX: M81.0 Age-related osteoporosis without current pathological fracture (principal); Z13.820 Encounter for screening for osteoporosis; Z78.0 Asymptomatic menopausal state
CPT/HCPCS: 77080

== ENCOUNTER → 2023-11-21 15:37 | Outpatient (CLI) | payer MEDICARE, OTHER, SELFPAY ==
--- NOTE | 2023-11-21 15:40 | DI.RAD.S_ITS ---
PROCEDURE: XR LUMBAR SPINE 2-3V INDICATIONS: Age-related osteoporosis without current pathological fractu TECHNIQUE: 3 views of the lumbar spine were acquired. COMPARISON: [facility], , XR LUMBAR SPINE 2-3V, 07/25/2022, 14:39. FINDINGS: Bones: Mild dextroscoliosis of the lumbar spine, unchanged from prior exam. Moderate anterior compression fracture of L1, unchanged from prior exam. Multilevel, mild degenerative disc disease of the lumbar spine. Mild lower lumbar facet arthropathy. Soft tissues: Embolization coil projects over the left upper quadrant. IMPRESSION: Overall, no significant change from prior exam. Dictated by: Alicja Glaser M.D. on 11/21/2023 at 18:17 Approved by: Alicja Glaser M.D. on 11/21/2023 at 18:18
--- NOTE | 2023-11-21 15:40 | DI.RAD.S_ITS ---
PROCEDURE: XR THORACIC SPINE 2V INDICATIONS: Age-related osteoporosis without current pathological fractu TECHNIQUE: 2 views of the thoracic spine were acquired. COMPARISON: None. FINDINGS: Bones: Mild levocurvature at the thoracolumbar junction. Cervical thoracic junction is not well visualized. Visualized thoracic vertebral body heights are well maintained. Moderate anterior compression fracture L1, chronic. The T12 ribs are hypoplastic. Mild, multilevel degenerative disc disease of the thoracic spine. IMPRESSION: No acute bony abnormality. Dictated by: Alicja Glaser M.D. on 11/21/2023 at 18:18 Approved by: Alicja Glaser M.D. on 11/21/2023 at 18:21
== END ==
LOC: RAD 15:39
PROVIDERS: PCP Internal Medicine; Referring Provider Internal Medicine Endocrinology, Diabetes & Metabolism; Visit Provider Internal Medicine Endocrinology, Diabetes & Metabolism
DX: M81.0 Age-related osteoporosis without current pathological fracture (principal)
CPT/HCPCS: 72070; 72100

== ENCOUNTER → 2024-02-02 15:39 | Outpatient (CLI) | payer MEDICARE, OTHER, SELFPAY ==
--- NOTE | 2024-02-02 15:40 | DI.MRI.S_ITS ---
PROCEDURE: MR HEAD/BRAIN WO/W CON INDICATIONS: frequent falls TECHNIQUE: Noncontrast axial T1 spin echo, axial T2 fast spin echo, sagittal and axial FLAIR, coronal T2 fast spin echo, axial gradient echo, axial diffusion and ADC through the brain. After the administration of contrast, axial and coronal and sagittal T1 spin echo with fat saturation through the brain. COMPARISON: None. FINDINGS: Image quality: Excellent. CSF spaces: Basal cisterns are patent. No extra-axial fluid collections. Ventricles are normal in size and shape. Brain: No midline shift. No intracranial bleeds or masses. No abnormal intracranial enhancement. There is cerebral volume loss for age. The brainstem appears normal. Diffusion-weighted images demonstrate no acute infarct. No chronic ischemic insults. Normal intravascular flow voids are present. Skull and face: Calvarial marrow is normal in signal. Orbits appear normal. Sinuses: Sinuses and mastoids appear clear. IMPRESSION: 1. Mild cerebral volume loss. 2. No acute process. No recent infarct. Dictated by: Mik Pa M.D. on 02/02/2024 at 17:03 Approved by: Mik Pa M.D. on 02/02/2024 at 17:04
== END ==
PROVIDERS: PCP Internal Medicine; Referring Provider Internal Medicine; Visit Provider Internal Medicine
DX: R26.89 Other abnormalities of gait and mobility (principal); R29.6 Repeated falls
CPT/HCPCS: 70553; A9579

== ENCOUNTER → 2024-05-19 06:37 | Outpatient (CLI) | payer MEDICARE, OTHER, SELFPAY ==
--- NOTE | 2024-05-19 06:38 | DI.US.S_ITS ---
PROCEDURE: US THYROID INDICATIONS: HYPERTHYROIDISM TECHNIQUE: Real-time scanning was performed of the thyroid gland, with image documentation. COMPARISON: None. FINDINGS: Thyroid: Right lobe measures 4.5 x 1.0 x 1.0 cm. Left lobe measures 3.9 x 1.0 x 1.2 cm. Isthmus is 0.16 cm thick. Echotexture is homogeneous. Nodule number: 1 Location: Left mid Size: 1.3 x 0.5 x 0.6 cm. Composition: Solid Echogenicity: Hypoechoic Shape: Wider than tall Margins: Lobulated Echogenic foci: Punctate Total points: 9 ACR TI-RADS category: Highly suspicious (TR5) IMPRESSION: 1.3 x 0.5 x 0.6 centimeter left thyroid nodule with highly suspicious imaging characteristics (TI-RADS 5). Recommend ultrasound-guided fine-needle aspiration based on criteria outlined below. ACR TI-RADS definitions and recommendations: TI-RADS 1 (benign): 0 points. FNA not needed. TI-RADS 2 (not suspicious): 2 points. FNA not needed. TI-RADS 3: 3 points. * FNA if 2.5 cm or larger, follow up if 1.5 cm or larger (at 1, 3, and 5 years). TI-RADS 4: 4-6 points. * FNA if 1.5 cm or larger, follow up if 1 cm or larger (at 1, 2, 3, and 5 years). TI-RADS 5: 7 points or more. * FNA if 1 cm or larger, follow up if 0.5 cm or larger (every year for 5 years). Dictated by: Anat Rodríguez MD, PhD on 05/19/2024 at 10:26 Approved by: Anat Rodríguez MD, PhD on 05/19/2024 at 10:29
== END ==
PROVIDERS: PCP Internal Medicine; Referring Provider Internal Medicine; Visit Provider Internal Medicine
DX: E05.90 Thyrotoxicosis, unspecified without thyrotoxic crisis or storm (principal); E04.1 Nontoxic single thyroid nodule
CPT/HCPCS: 76536

== ENCOUNTER → 2024-06-09 14:00 | Outpatient (CLI) | payer MEDICARE, OTHER, SELFPAY ==
--- NOTE | 2024-06-09 14:01 | DI.MG.S_ITS ---
MM screening mammo BI: 06/09/2024. BI-RADS: 1 CLINICAL: 74-year old female for bilateral screening mammogram. Tyrer-Cuzick lifetime risk of 6.8%. No personal or first-degree family history of breast cancer. Current reported family history of breast cancer: maternal grandmother. PRIOR EXAMS 06/08/2021, 02/28/2020, 02/12/2020. MAMMOGRAPHY TECHNIQUE: 2D and 3D (tomosynthesis) digital mammographic views obtained, with additional images as needed for full coverage. Current study was also evaluated with a Computer Aided Detection (CAD) system. DENSITY C. The breasts are heterogeneously dense, which may obscure small masses. MAMMOGRAPHY FINDINGS Bilateral: No suspicious mass, asymmetry, microcalcification, or other abnormality seen. IMPRESSION: * No evidence of malignancy. RECOMMENDATIONS Bilateral * Annual screening mammography. OVERALL ASSESSMENT CATEGORY BI-RADS-1: Negative. The [employer] recommends annual screening mammography beginning at age 40 for women with average risk of breast cancer. ELECTRONICALLY SIGNED: Zulema Li M.D. on 06/09/2024 at 04:14:12 PM PT Interpreting Station ID: [id number]
== END ==
PROVIDERS: PCP Registered Nurse; Referring Provider Registered Nurse; Visit Provider Registered Nurse
DX: Z12.31 Encounter for screening mammogram for malignant neoplasm of breast (principal); Z80.3 Family history of malignant neoplasm of breast; R92.333 Mammographic heterogeneous density, bilateral breasts
CPT/HCPCS: 77063; 77067

== ENCOUNTER → 2024-06-11 | Outpatient (CLI) | payer MEDICARE, OTHER, SELFPAY ==
--- NOTE | 2024-06-11 12:42 | DI.US.S_ITS ---
PROCEDURE: US FINE NEEDLE ASPIRATION INDICATIONS: THYROID NODULE TECHNIQUE: The indications, alternatives, benefits, risks, and complications of the procedure were explained to the patient. Written informed consent was obtained and placed in the chart. The thyroid region was examined sonographically and a site was chosen for ultrasound guided percutaneous sampling. The skin was prepared and draped in the usual fashion, and anesthetized with 1% lidocaine infiltrated from the skin down to the thyroid gland. Multiple passes were then performed, with contents emptied into an appropriate pathology specimen container. A bandage was applied to the area of access at completion of the study. COMPARISON: [facility], US, US THYROID, 05/19/2024, 6:43. FINDINGS: Location(s) of lesion(s) sampled: Left mid thyroid nodule measuring 1.3 cm. [place]: 25 gauge hypodermic needles x3. 22 gauge hypodermic needles x3. Number of passes: 6 total. Medications: 1% lidocaine for local anaesthesia. Complications: None. IMPRESSION: Successful ultrasound-guided thyroid nodule fine needle aspiration, with cytology results pending. Please see chart below for management recommendations based on cytology results. [place] [facility] ReportingRecommendationsNon-diagnostic* Repeat US-guided FNA, with on-site cytology evaluation if possible. * Repeated non-diagnostic nodules without high suspicion US features: close observation vs surgical consult. * Consider surgery if nodule has high suspicion US features, grows >20% in 2 dimensions on followup, or patient has clinical risk factors for malignancy. Benign* If nodule has high suspicion US features: repeat US and FNA within 12 months. * If nodule has low to intermediate suspicion US features: repeat US at 12-24 months. If nodule grows (20% increase in at least 2 dimensions, with minimal increase of 2 mm or >50% change in volume), or development of new suspicious US features, then repeat FNA or continue followup. * If nodule has very low suspicion US features: followup US at >24 months. Atypia of undetermined significance, follicular lesion of undetermined significanceRepeat FNA, molecular testing, followup US, or surgical consult.Follicular neoplasm, suspicious for follicular neoplasmSurgical consult; also consider molecular testing. Suspicious for malignancySurgical consult.MalignantSurgical consult. Dictated by: Agustín Regalado M.D. on 06/11/2024 at 15:58 Approved by: Agustín Regalado M.D. on 06/11/2024 at 16:00
--- NOTE | 2024-06-11 13:31 | PATH_ITS ---
Note [facility] Accession Number: [id number] TESTS RESULT FLAG UNITS REF RANGE LAB Clinician Provided Cytology Information No. of containers..01 Other (Miscellaneous) No. of containers..02 Previously Prepared Cytology Slide Source: LEFT THYROID DIAGNOSIS: LEFT THYROID ATYPIA OF UNDETERMINED SIGNIFICANCE. B[place] CATEGORY III. ATYPIA OF UNDETERMINED SIGNIFIANCE - NUCLEAR ATYPIA. MOLECULAR STUDIES REQUESTED; RESULTS WILL BE REPORTED SEPARATELY. COMMENT: Although the specimen is hypocellular, the cellular material consists of oncycytes / Hurthle cells without significant cytologic atypia. This case was also reviewed by Dr. Ce Barrios (Julie), who agrees with the interpretation. Pathologist ICD10: 01 R89.6 Signed out by: Shelby Palma MD, Pathologist NPI- [id number] Performed by: Freddy Elliott, Data Collection Interviewer ([facility]) Gross description: 30 CC, LIGHT PINK, CLEAR RECEIVED IN CYTOLYT CONTAINER. RECEIVED 6 ALCOHOL FIXED SLIDES IN 2 GREEN CAP COFFINS. RECEIVED FIXED STAINED SLIDES IN 2 COFFINS. RECEIVED 1 RNA VIAL. : 12/04/24 ASHLEY /RYAN 06/14/2024 1522 [facility] FLAG LEGEND: L-Low Normal,H-High Normal,LL-Alert Low,HH-Alert High <-Panic Low,>-Panic High,A-Abnormal,AA-Critical Abnormal Performed at: 01 =Z [facility] [id number] Naveen Savage MD, Performed at: [address] [facility], [place], [place] [id number] MD Naveen Savage MD Phone: [phone]
== END ==
LOC: US 12:41
PROVIDERS: PCP Registered Nurse; Referring Provider Registered Nurse; Visit Provider Registered Nurse
DX: E04.1 Nontoxic single thyroid nodule (principal)
CPT/HCPCS: 10005